=== PATIENT | female | born 1945 | race Hispanic/Latino ===

== ENCOUNTER 2016-06-30 12:15 | Emergency (ER) | payer MEDICARE, BC ==
[2016-06-30 12:26] VITALS: RESP 18; TEMP 98.3; BMI 40.3
[2016-06-30] MEDS ORDERED: Albuterol-Ipratrop 3 mg / 0.5 (3 ml) UD IH STA (12:57)
--- NOTE | 2016-06-30 13:02 | ED PDOC ---
Arrival/HPI - General Chief Complaint: Shortness Of Breath Time Seen by Provider: 06/30/16 12:42 Historian: Patient - History of Present Illness Narrative History of Present Illness (Text): 06/30/16 12:55 A 70 year old female presents to the emergency department complaining of a cough , congestion, shortness of breath and wheezing for the past 9 weeks. Patient states she has been in and out of her PMD office for the same complaints and has taken maniple antibiotics. She says yesterday she went to her PMD office and was told to come to the emergency department for admission. Patient denies any abdominal pain, fever, nausea, vomiting or other complaints. Patient quit smoking 6 years ago and occasional drinks. PMD: Dr. Turner Time/Duration: Other (9 weeks) Symptom Onset: Other Symptom Course: Unchanged Quality: Other Activities at Onset: Rest Context: Home Associated Symptoms (Text): 06/30/16 15:05 Several month history of cough congestion and URI shortness of breath and wheezing. patient has been on several courses of antibiotics. She's been on multiple courses of by mouth steroids. She was seen by her PMD in the office yesterday and given a shot of steroids and directed to the emergency department for admission. Past Medical History - Provider Review Nursing Documentation Reviewed: Yes - Cardiac Hx Hypertension: Yes - Pulmonary Hx Asthma: Yes Hx Chronic Obstructive Pulmonary Disease (COPD): Yes - Endocrine/Metabolic Hx Diabetes Mellitus Type 2: Yes - Genitourinary/Gynecological Hx Cervical Cancer: Yes (cervical conization) - Psychiatric Hx Substance Use: No - Anesthesia Hx Anesthesia: Yes Hx Anesthesia Reactions: No Hx Malignant Hyperthermia: No Family/Social History - Physician Review Nursing Documentation Reviewed: Yes Family/Social History: Unknown Family HX Smoking Status: Former Smoker (quit smoking 6 years ago) Hx Alcohol Use: Yes Frequency of alcohol use: Socially Hx Substance Use: No Allergies/Home Meds Allergies/Adverse Reactions: Allergies No Known Allergies Allergy (Unverified 06/30/16 12:56) Review of Systems - Physician Review All systems were reviewed & negative as marked: Yes - Review of Systems Constitutional: absent: Fatigue, Fevers ENT: Sinus Congestion Respiratory: SOB, Cough, Wheezing. absent: Sputum Cardiovascular: absent: Chest Pain, Palpitations, Syncope Gastrointestinal: absent: Abdominal Pain, Nausea, Vomiting Neurological: absent: Headache, Dizziness Physical Exam Vital Signs Reviewed: Yes Vital Signs Temp Pulse Resp BP Pulse Ox 06/30/16 13:34 78 18 122/59 L 96 06/30/16 12:26 98.3 F 83 18 124/58 L 95 Temperature: Afebrile Blood Pressure: Normal Pulse: Regular Respiratory Rate: Normal Appearance: Positive for: Well-Appearing, Non-Toxic, Comfortable Pain Distress: None Mental Status: Positive for: Alert and Oriented X 3 - Systems Exam Head: Present: Atraumatic, Normocephalic Pupils: Present: PERRL Extroacular Muscles: Present: EOMI Conjunctiva: Present: Normal Mouth: Present: Moist Mucous Membranes Pharnyx: No: ERYTHEMA, EXUDATE, TONSILS ENLARGED Neck: Present: Normal Range of Motion Respiratory/Chest: Present: Good Air Exchange, Wheezes (moderate wheezing bilaterally), Decreased Breath Sounds, Rhonchi (moderate rhonchi bilaterally). No: Respiratory Distress, Accessory Muscle Use, Rales, Retracting, Tachypneic, Tender to Palpation Cardiovascular: Present: Regular Rate and Rhythm, Normal S1, S2. No: Murmurs Abdomen: Present: Normal Bowel Sounds, Other (obese). No: Tenderness, Distention, Peritoneal Signs Back: Present: Normal Inspection Upper Extremity: Present: Normal Inspection. No: Cyanosis, Edema Lower Extremity: Present: Normal Inspection. No: Edema Neurological: Present: GCS=15, CN II-XII Intact, Speech Normal, Motor Func Grossly Intact Skin: Present: Warm, Dry, Normal Color. No: Rashes Psychiatric: Present: Alert, Oriented x 3, Normal Insight, Normal Concentration Medical Decision Making ED Course and Treatment: 06/30/16 12:55 Impression: A 70 year old female with cough, congestion, shortness of breath and wheezing. Differential Diagnosis include but are not limited to: ACS vs. bronchitis vs. pneumonia vs. CHF vs. COPD Plan: -- EKG -- Chest X-ray -- Labs -- Duoneb and Solu-Medrol -- Reassess and disposition Progress Notes: 06/30/16 15:07 Patient apparently eloped from the emergency department - Lab Interpretations Lab Results: 06/30/16 14:00 Lab Results 06/30/16 14:00: WBC 13.1 H, RBC 4.34, Hgb 13.5, Hct 39.2, MCV 90.3, MCH 31.1, MCHC 34.4, RDW 13.2, Plt Count 337, MPV 10.2, Gran % 70.8 H, Lymph % (Auto) 18.7 L, [place] % (Auto) 8.2 H, Eos % (Auto) 2.1, Baso % (Auto) 0.2, Gran # 9.27 H , Lymph # 2.5, [place] # 1.1 H, Eos # 0.3, Baso # 0.03 I have reviewed the lab results: Yes - RAD Interpretation Radiology Orders: 06/30/16 12:56 CHEST PORTABLE [RAD] Stat Chest 1 view shows no infiltrate effusion or cardiomegaly Psychiatric Rn: ED Physician - Medication Orders Current Medication Orders: Discontinued Medications Albuterol/Ipratropium (Duoneb 3 Mg/0.5 Mg (3 Ml) Ud) 3 ml IH ONCE STA Stop: 06/30/16 12:58 Last Admin: 06/30/16 13:47 Dose: 3 ml Methylprednisolone (Solu-Medrol) 125 mg IVP ONCE ONE Stop: 06/30/16 12:58 Last Admin: 06/30/16 13:47 Dose: 125 mg - Scribe Statement The provider has reviewed the documentation as recorded by the Kane Rojas Provider Kane Attestation: All medical record entries made by the Kane were at my direction and personally dictated by me. I have reviewed the chart and agree that the record accurately reflects my personal performance of the history, physical exam, medical decision making, and the department course for this patient. I have also personally directed, reviewed, and agree with the discharge instructions and disposition. Disposition/Present on Arrival - Present on Arrival Any Indicators Present on Arrival: No History of DVT/PE: No History of Uncontrolled Diabetes: No Urinary Catheter: No History of Decub. Ulcer: No History Surgical Site Infection Following: None - Disposition Have Diagnosis and Disposition been Completed?: Yes Diagnosis: Asthmatic bronchitis Disposition: ELOPEMENT - ER ONLY Disposition Time: 15:08 Patient Plan: Other Condition: GOOD Referrals: Sumit Butcher MD [Primary Care Provider] - Follow up with primary
--- NOTE | 2016-06-30 13:18 | RAD ---
HISTORY: sob COMPARISON: No prior. FINDINGS: LUNGS: No active pulmonary disease. PLEURA: No significant pleural effusion identified, no pneumothorax apparent. CARDIOVASCULAR: Normal. OSSEOUS STRUCTURES: No significant abnormalities. VISUALIZED UPPER ABDOMEN: Normal. OTHER FINDINGS: None. IMPRESSION: No active disease.
[2016-06-30 13:34] VITALS: BP 122/59; PULSE 78; O2SAT 96
[2016-06-30 14:05] LABS: ADD MANUAL DIFF? NO
[2016-06-30 14:09] LABS: BASO # 0.03 K/mm3 (0.0-2.0); BASO % 0.2 % (0.0-3.0); EOS # 0.3 (0.0-0.7); EOS % 2.1 % (1.5-5.0); GRAN # 9.27 (1.4-6.5); GRAN % 70.8 % (50.0-68.0); HEMATOCRIT 39.2 % (36.0-48.0); LYMPH # 2.5 (1.2-3.4); LYMPH % 18.7 % (22.0-35.0); MEAN CELL VOLUME 90.3 fL (80.0-105.0); MEAN CORPUSCULAR HEMOGLOBIN 31.1 pg (25.0-35.0); MEAN CORPUSCULAR HGB CONC 34.4 g/dl (31.0-37.0); MEAN PLATELET VOLUME 10.2 fl (7.0-11.0); MONO # 1.1 (0.1-0.6); MONO % 8.2 % (1.0-6.0); PLATELET COUNT 337 10^3/uL (120.0-450.0); RED CELL DISTRIBUTION WIDTH 13.2 % (11.5-14.5); WHITE BLOOD COUNT 13.1 10^3/ul (4.5-11.0)
--- NOTE | 2016-06-30 22:30 | CARD ---
APPROVED REPORT EKG Measurement Heart [id number] <Conclusion> Normal sinus rhythm Normal ECG
== END 2016-06-30 15:00 | disposition left against medical advice (07) ==
LOC: ED 12:15
DX: J45.909 Unspecified asthma, uncomplicated (principal)
CPT/HCPCS: 71010; 85025; 93005; 96374; 99284; J2930

== ENCOUNTER 2017-01-01 13:42 | Inpatient (IN) | payer MEDICARE, BC ==
--- NOTE | 2017-01-01 14:19 | ED PDOC ---
Arrival/HPI - General Chief Complaint: Altered Mental Status Time Seen by Provider: 01/01/17 13:46 Historian: Patient - History of Present Illness Narrative History of Present Illness (Text): 01/01/17 14:18 A 71 year old female, whose past medical history includes questionable uterine cancer (being treated at [facility]), last chemotherapy treatment was approximately last week, was brought in by EMS to the emergency department complaining of one episode of vomiting today and chills. Patient lives with son , was unattended last night and remembers falling to the ground, all night and was too weak to get up. Patient is a poor historian, no further history was elicited. Patient denies any fever, dysuria, cough, shortness of breath, knee pain or any other complaints at this time. PMD: Dr. Butcher Symptom Onset: Sudden Symptom Course: Unchanged Activities at Onset: Rest Context: Home Past Medical History - Provider Review Nursing Documentation Reviewed: Yes - Infectious Disease Hx of Infectious Diseases: None - Cardiac Hx Cardiac Disorders: Yes Hx Hypertension: Yes - Pulmonary Hx Asthma: Yes Hx Chronic Obstructive Pulmonary Disease (COPD): Yes - Renal Hx Renal Disorder: No - Endocrine/Metabolic Hx Diabetes Mellitus Type 2: Yes - Hematological/Oncological Hx Cancer: Yes (lymph node, ovarian, lung) - Musculoskeletal/Rheumatological Hx Falls: Yes - Genitourinary/Gynecological Hx Cervical Cancer: Yes (cervical conization) - Psychiatric Hx Substance Use: No - Anesthesia Hx Anesthesia: Yes Hx Anesthesia Reactions: No Hx Malignant Hyperthermia: No Family/Social History - Physician Review Nursing Documentation Reviewed: Yes Family/Social History: No Known Family HX Smoking Status: Former Smoker Hx Alcohol Use: Yes Hx Substance Use: No Allergies/Home Meds Allergies/Adverse Reactions: Allergies No Known Allergies Allergy (Verified 01/01/17 14:05) Home Medications: Home Meds Medication Instructions Recorded Confirmed Unobtainable 01/01/17 01/01/17 Review of Systems - Patients Enrolled in [employer] [X]: A conversation was conducted with the primary medical doctor. - Physician Review All systems were reviewed & negative as marked: Yes - Review of Systems Constitutional: absent: Fevers Respiratory: absent: SOB, Cough Genitourinary Female: absent: Dysuria Musculoskeletal: absent: Other (knee pain) Physical Exam Vital Signs Reviewed: Yes Vital Signs Temp Pulse Resp BP Pulse Ox 01/01/17 17:33 99.9 F H 84 18 137/61 95 01/01/17 16:00 99.0 F 89 18 138/71 95 01/01/17 14:00 97.6 F 100 H 16 153/69 H 100 Temperature: Afebrile Blood Pressure: Hypertensive Pulse: Regular Respiratory Rate: Normal Appearance: Positive for: Comfortable Pain Distress: None Mental Status: Positive for: other (alert) Finger Stick Blood Glucose: 114 - Systems Exam Head: Present: Atraumatic, Normocephalic Pupils: Present: PERRL Extroacular Muscles: Present: EOMI Conjunctiva: Present: Normal Mouth: Present: Moist Mucous Membranes Neck: Present: Normal Range of Motion Respiratory/Chest: Present: Clear to Auscultation, Good Air Exchange, Other ( erythema around port on R chest, tender to palpation, reports this has been like that ever since had port put in). No: Respiratory Distress, Accessory Muscle Use Cardiovascular: Present: Regular Rate and Rhythm, Normal S1, S2. No: Murmurs Abdomen: Present: Normal Bowel Sounds. No: Tenderness, Distention, Peritoneal Signs Back: Present: Normal Inspection Upper Extremity: Present: Normal Inspection. No: Cyanosis, Edema Lower Extremity: Present: Other (left knee contusion). No: Edema Skin: Present: Warm, Dry, Normal Color. No: Rashes Psychiatric: Present: Alert. No: Normal Insight, Normal Concentration Medical Decision Making ED Course and Treatment: 01/01/17 14:16 Impression: A 71 year old female with chills and vomiting. Plan: -- EKG -- chest xray -- CT head -- labs -- Urinalysis -- Vancomycin -- Reassess and disposition Prior Visits: Notes and results from previous visits were reviewed. Patient was last seen in the emergency department on 12/18/16 for evalaution of RLQ abdominal pain. Patient had a CT abd/pelvis, but while waiting for results, she eloped. Patient also had a pelvic US done two months ago, which showed diffuse endometrial thickening. CT abd/pelvis with contrast from 12/18/16 Creator : Eve Barone MD IMPRESSION: Indeterminate 12 mm splenic dome hypodensity. Splenomegaly. Too small to characterize hepatic hypodensity. Too small to characterize right renal hypodensities. 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 Heterogeneous appearance of the uterus including punctate calcifications likely related to fibroids. Fluid and heterogeneous appearance of the endometrium; correlate clinically ; in this postmenopausal patient, malignant neoplasm must be excluded. Progress Notes: Patient was prescribed 90 oxycodone on 12/12/16. EKG: Ordered, reviewed, and independently interpreted the EKG. Rate : 104 BPM Rhythm : sinus tachycardic Interpretation : no ectopy, no ischemic changes, qs in 3 and avf suggestive of old inferior wall HI 01/01/17 15:33 White count is 12.8 with a left shift. Will start her on antibiotics. Spoke with Dr. Butcher, who agrees to admit patient. 01/01/17 16:23 Chest xray: Portacath in place to R chest wall, lungs no acute pulmonary disease, cardiac silhouette within normal limits, as read by me. 01/01/17 18:20 CT HEAD WITHOUT CONTRAST Creator : Ross Mcelroy FINDINGS: HEMORRHAGE: No intracranial hemorrhage. BRAIN: No mass effect or edema. No atrophy or chronic microvascular ischemic changes. VENTRICLES: Unremarkable. No hydrocephalus. CALVARIUM: Unremarkable. PARANASAL SINUSES: Unremarkable as visualized. No significant inflammatory changes. MASTOID AIR CELLS: Unremarkable as visualized. No inflammatory changes. IMPRESSION: No evidence of acute intracranial hemorrhage territorial infarct mass effect or midline shift. - Lab Interpretations Lab Results: 01/01/17 14:30 01/01/17 14:30 Lab Results 01/01/17 15:27: pO2 27 L, VBG pH 7.35, VBG pCO2 53.0, VBG HCO3 29.3 H, VBG Total CO2 30.9 H, VBG O2 Sat (Calc) 56.7, VBG Base Excess 2.5 H, VBG Potassium 4.4, Glucose 158 H, Lactate 3.0 H, FiO2 21.0, Sodium 135.0, Chloride 101.0, Venous Blood Potassium 4.4 01/01/17 14:30: Sodium 136, Potassium 4.9, Chloride 98, Carbon Dioxide 29, Anion Gap 14, BUN 26 H, Creatinine 0.9, Est GFR ( Amer) > 60, Est GFR ( Non-Af Amer) > 60, Random Glucose 156 H, Calcium 9.7, Total Bilirubin 0.8, AST 64 H D, ALT 41, Alkaline Phosphatase 71, Troponin I 0.35 H*, Total Protein 7.5, Albumin 3.9, Globulin 3.7, Albumin/Globulin Ratio 1.1, Lipase 57 01/01/17 14:30: PT 12.8 H, INR 1.17 H, APTT 34.7 01/01/17 14:30: WBC 12.9 H D, RBC 4.37, Hgb 12.8, Hct 37.2, MCV 85.1, MCH 29.3, MCHC 34.4, RDW 13.6, Plt Count 161, MPV 10.0, Gran % 91.6 H, Lymph % (Auto) 4.8 L, [place] % (Auto) 3.4, Eos % (Auto) 0.0 L, Baso % (Auto) 0.2, Gran # 11.81 H, Lymph # 0.6 L, Branch # 0.4, Eos # 0.0, Baso # 0.03, Neutrophils % (Manual) 86 H, Band Neutrophils % 4 H, Lymphocytes % (Manual) 6 L, Monocytes % (Manual) 4, Platelet Evaluation Normal 01/01/17 14:11: POC Glucose (mg/dL) 114 H I have reviewed the lab results: Yes - RAD Interpretation Radiology Orders: 01/01/17 14:05 HEAD W/O CONTRAST [CT] Stat 01/01/17 14:06 CHEST PORTABLE [RAD] Stat - EKG Interpretation Interpreted by ED Physician: Yes Type: 12 lead EKG - Medication Orders Current Medication Orders: Acetaminophen (Tylenol 325mg Tab) 650 mg PO Q4H PRN PRN Reason: Temperature Last Admin: 01/01/17 20:55 Dose: 650 mg MAR Pain/Vitals Document 01/01/17 20:55 CD (Rec: 01/01/17 20:56 CD [facility] [id number][place] Vitals Temperature (97.6 F-99.6 F) 101.9 F Temperature Source Rectal Ceftriaxone Sodium (Rocephin 1 Gram Ivpb) 1 gm in 100 mls @ 100 mls/hr IVPB DAILY LULU PRN Reason: Protocol Vancomycin HCl (Vancomycin 1gm) 1 gm in 250 mls @ 167 mls/hr IVPB Q12H [facility] PRN Reason: Protocol Last Admin: 01/01/17 19:01 Dose: Sodium Chloride (Sodium Chloride 0.45%) 1,000 mls @ 75 mls/hr IV .[id number] LULU Last Admin: 01/01/17 20:40 Dose: 75 mls/hr eMAR Start Stop Document 01/01/17 20:40 CD (Rec: 01/01/17 20:40 CD [id number]) Intravenous Solution Start Date 01/01/17 Start Time 20:40 Insulin Human Lispro (Humalog Med) 0 units SC ACHS LULU PRN Reason: Protocol Discontinued Medications Vancomycin HCl 1.5 gm/ Sodium (Chloride) 250 mls @ 167 mls/hr IVPB ONCE ONE PRN Reason: Protocol Stop: 01/01/17 17:02 Last Admin: 01/01/17 17:10 Dose: 167 mls/hr eMAR Start Stop Document 01/01/17 17:10 KKL (Rec: 01/01/17 17:10 [id number] Intravenous Solution Start Date 01/01/17 Start Time 17:10 Ceftriaxone Sodium (Rocephin 1 Gram Ivpb) 1 gm in 100 mls @ 200 mls/hr IVPB STAT STA PRN Reason: Protocol Stop: 01/01/17 16:04 Last Admin: 01/01/17 16:40 Dose: 200 mls/hr eMAR Start Stop Document 01/01/17 16:40 KKL (Rec: 01/01/17 16:41 KKL [id number]) Intravenous Solution Start Date 01/01/17 Start Time 16:41 Sodium Chloride 3,000 ml/ IV (SUPPLIES) 3,000 mls @ 6,803.88 mls/hr IV ONCE ONE PRN Reason: 60 ML/KG/HR Stop: 01/01/17 15:46 Last Admin: 01/01/17 16:41 Dose: 6,803.88 mls/hr eMAR Start Stop Document 01/01/17 16:41 KKL (Rec: 01/01/17 16:41 KKL [id number]) Intravenous Solution Start Date 01/01/17 Start Time 15:45 - Scribe Statement The provider has reviewed the documentation as recorded by the Kane Vogt Provider Scribe Attestation: All medical record entries made by the Scribe were at my direction and personally dictated by me. I have reviewed the chart and agree that the record accurately reflects my personal performance of the history, physical exam, medical decision making, and the department course for this patient. I have also personally directed, reviewed, and agree with the discharge instructions and disposition. Disposition/Present on Arrival - Present on Arrival Any Indicators Present on Arrival: No History of DVT/PE: No History of Uncontrolled Diabetes: No Urinary Catheter: No History of Decub. Ulcer: No History Surgical Site Infection Following: None - Disposition Have Diagnosis and Disposition been Completed?: Yes Diagnosis: Sepsis associated with vascular access catheter Disposition: HOSPITALIZED Disposition Time: 22:35 Patient Plan: Admission Condition: FAIR
[2017-01-01 15:28] LABS: BASO # 0.03 K/mm3 (0.0-2.0); BASO % 0.2 % (0.0-3.0); GRAN # 11.81 (1.4-6.5); GRAN % 91.6 % (50.0-68.0); HEMATOCRIT 37.2 % (36.0-48.0); LYMPH # 0.6 (1.2-3.4); LYMPH % 4.8 % (22.0-35.0); MEAN CELL VOLUME 85.1 fl (80.0-105.0); MEAN CORPUSCULAR HEMOGLOBIN 29.3 pg (25.0-35.0); MEAN CORPUSCULAR HGB CONC 34.4 g/dl (31.0-37.0); MONO # 0.4 (0.1-0.6); MONO % 3.4 % (1.0-6.0); PLATELET COUNT 161 10^3/uL (120.0-450.0); RED CELL DISTRIBUTION WIDTH 13.6 % (11.5-14.5); WHITE BLOOD COUNT 12.9 10^3/ul (4.5-11.0)
[2017-01-01 15:30] LABS: VENOUS BLOOD GAS BASE EXCESS 2.5 mmol/L (0.0-2.0); VENOUS BLOOD PH 7.35 (7.32-7.43)
[2017-01-01 15:34] LABS: ALB/GLOB RATIO 1.1 (1.1-1.8); ALKALINE PHOSPHATASE 71 U/L (38-126); ALT/SGPT 41 U/L (7-56); AST/SGOT 64 U/L (14-36); BILIRUBIN,TOTAL 0.8 mg/dL (0.2-1.3); BLOOD UREA NITROGEN 26 mg/dL (7-21); CALCIUM 9.7 mg/dL (8.4-10.5); CARBON DIOXIDE 29 mmol/L (21-33); CHLORIDE 98 mmol/L (98-107); GFR AFRICAN-AMERICAN > 60; GLUCOSE,RANDOM 156 mg/dL (70-110); LIPASE 57 U/L (23-300); POTASSIUM 4.9 mmol/L (3.6-5.0); SODIUM 136 mmol/L (132-148); TOTAL PROTEIN 7.5 g/dL (5.8-8.3)
[2017-01-01] MEDS ORDERED: cefTRIAXone 1 gm 1 GM/100 ML BAG IVPB STA (15:35)
[2017-01-01 15:44] LABS: INR 1.17 (0.93-1.08); PARTIAL THROMBOPLASTIN TIME 34.7 Seconds (25.1-36.5)
[2017-01-01 15:56] LABS: PH,URINE 5.5 (4.7-8.0); URINE APPEARANCE CLEAR (CLEAR); URINE BILIRUBIN NEGATIVE (NEGATIVE); URINE BLOOD MODERATE (NEGATIVE); URINE COLOR YELLOW (YELLOW); URINE GLUCOSE (UA) NEGATIVE (NEGATIVE); URINE KETONE NEGATIVE (NEGATIVE); URINE LEUKOCYTE ESTERASE NEGATIVE Leu/uL (NEGATIVE); URINE PROTEIN 30 mg/dL (<30 mg/dL); URINE UROBILINOGEN 0.2 E.U./dL (<1 E.U./dL)
[2017-01-01 15:56] LABS: TROPONIN I 0.35 ng/mL
[2017-01-01 16:43] LABS: URINE AMORPHOUS SEDIMENT MODERATE; URINE BACTERIA MOD (NEG); URINE EPITHELIAL CELLS 0 - 2 /hpf (0-5); URINE WBC 0 - 2 /hpf (0-6)
--- NOTE | 2017-01-01 16:57 | RAD ---
HISTORY: Shortness of breath. Technique: Single view portable semi erect @ 16:05. COMPARISON: 06/30/2016 FINDINGS: LUNGS: No active pulmonary disease. PLEURA: No significant pleural effusion identified, no pneumothorax apparent. CARDIOVASCULAR: No radiographic findings to suggest acute or significant cardiovascular disease. Venous access catheter in satisfactory position. OSSEOUS STRUCTURES: No significant abnormalities. VISUALIZED UPPER ABDOMEN: Normal. OTHER FINDINGS: None. IMPRESSION: No active disease. No significant interval change compared to the prior examination(s).
[2017-01-01 18:22] LABS: BAND 4 % (0-2); NEUTROPHIL 86 % (50.0-70.0)
--- NOTE | 2017-01-01 18:22 | CT ---
PROCEDURE: CT HEAD WITHOUT CONTRAST. HISTORY: altered mental status COMPARISON: None available. TECHNIQUE: Axial computed tomography images were obtained through the head/brain without intravenous contrast. Radiation dose: Total exam DLP = 930.49 mGy-cm. This CT exam was performed using one or more of the following dose reduction techniques: Automated exposure control, adjustment of the mA and/or kV according to patient size, and/or use of iterative reconstruction technique. FINDINGS: HEMORRHAGE: No intracranial hemorrhage. BRAIN: No mass effect or edema. No atrophy or chronic microvascular ischemic changes. VENTRICLES: Unremarkable. No hydrocephalus. CALVARIUM: Unremarkable. PARANASAL SINUSES: Unremarkable as visualized. No significant inflammatory changes. MASTOID AIR CELLS: Unremarkable as visualized. No inflammatory changes. OTHER FINDINGS: None. IMPRESSION: No evidence of acute intracranial hemorrhage territorial infarct mass effect or midline shift.
[2017-01-01 18:23] LABS: PLATELET ESTIMATE NORMAL (NORMAL)
[2017-01-01] MEDS: Vancomycin 1gm in NS 250ml 1 GM/250 ML BAG IVPB SCH (19:01)
[2017-01-01 19:48] LABS: VENOUS BLOOD PH 7.46 (7.32-7.43)
[2017-01-01 19:53] VITALS: BMI 40.3
[2017-01-01] MEDS ORDERED: Influenza Vaccine 60 mcg/0.5 mL SYR (4YR UP) IM ONE (19:53)
[2017-01-01] MEDS: Sodium Chloride 0.45% 1,000 ML IV SCH ×2 (20:40→23:19)
--- NOTE | 2017-01-01 22:57 | CARD ---
APPROVED REPORT EKG Measurement Heart [id number] MO 144P0 [id number] <Conclusion> Sinus tachycardia Inferior infarct, age undetermined Abnormal ECG
[2017-01-01] MEDS: Insulin Lispro (humaLOG) MEDIUM Coverage SC SCH (23:16)
--- NOTE | 2017-01-01 23:36 | HP ---
HISTORY OF PRESENT ILLNESS: The patient is a 71-year-old known to me from office practice, recently diagnosed with uterine cancer and getting chemotherapy and her last chemotherapy was a week ago. She complained of feeling very lethargic and vomited earlier this morning. The patient states that she felt very weak last night and fell and after that she does not know what happened. She was too weak to get up and call 911. So, this morning when she woke up, she managed to call ambulance and was brought to emergency room. Complained of generalized weakness and seems to be somewhat confused. No cough or congestion. Complained of feeling nauseous. PAST MEDICAL HISTORY: Significant for: 1. Degenerative disk disease. 2. COPD. 3. Borderline hypertension. 4. Recently diagnosed uterine cancer and got Port-A-Cath. ALLERGIES: SHE IS NOT ALLERGIC TO ANY MEDICATION. SOCIAL HISTORY: She used to be heavy smoker, socially drinks, and she used to live with her daughter who moved out. MEDICATIONS AT HOME: She is on MS Contin 30 mg twice a day. She is on amitriptyline 25 mg at bedtime. She is on Advair and also uses metformin 500 twice a day, Protonix 40 daily, and valsartan 160/12.5. REVIEW OF SYSTEMS: Generalized weakness and poor appetite. PHYSICAL EXAMINATION: GENERAL: She is awake and alert, but confused and lethargic. VITAL SIGNS: Temperature of 99.9, pulse 84, respirations 18, and blood pressure 137/61. LUNGS: Bilateral good airflow. No rhonchi or crackles. HEART: S1 and S2 audible. ABDOMEN: Soft, obese, and nontender. No rebound. No guarding. NEUROLOGIC: She is sleepy, but arousable. LABORATORY DATA: WBC is 12.9, hemoglobin is 12.8, hematocrit is 37.2, and platelets are 161. PT is 12.8 and INR is 1.17. Chemistry; sodium is 136, potassium is 4.9, chloride is 98, CO2 of 29, BUN is 26, creatinine is 0.9, and blood sugar of 156. Troponin 0.35. AST 64. Urinalysis shows moderate blood and RBC is 2.5 only. ASSESSMENT: 1. Sepsis probably related to catheter since she has erythema in the right Port-A-Cath area. 2. Uterine cancer. 3. Mild rhabdomyolysis. 4. History of hypertension. 5. Zob-ilqlyza-brnxxhkxe diabetes. PLAN: We will start the patient on IV fluids. We will follow up troponin. Cardiology consult, Neurology consult, and ID consult has been requested to monitor her blood sugar. We will start her on IV vancomycin and Rocephin. I will order for echocardiogram. We will monitor intake and output. We will reevaluate the patient in a.m. Sumit Butcher MD
--- NOTE | 2017-01-02 00:43 | CP.PCM.PN ---
Subjective - Date & Time of Evaluation Date of Evaluation: 01/02/17 Time of Evaluation: 00:42 - Subjective Subjective: Patient was seen at bedside. Complains of severe headache. Left arm pain. Has no other complaints. Denies nausea, vomiting, paraesthesia, weakness. Medical record was reviewed. This 71 year old woman was admitted for weakness and lethargy. Has PMH of uterine cancer, S/P chemotherapy, obesity, borderline HTN, DJD, COPD , s/P port-a-cath insertion. l Objective - Vital Signs/Intake and Output Vital Signs (last 24 hours): Temp Pulse Resp BP Pulse Ox 1003 F H 104 H 20 167/76 H 98 01/02/17 00:01 01/02/17 00:01 01/02/17 00:01 01/02/17 00:01 01/02/17 00:01 - Medications Medications: Current Medications Acetaminophen (Tylenol 325mg Tab) 650 mg PO Q4H PRN PRN Reason: Temperature Last Admin: 01/01/17 20:55 Dose: 650 mg Ceftriaxone Sodium (Rocephin 1 Gram Ivpb) 1 gm in 100 mls @ 100 mls/hr IVPB DAILY [facility] PRN Reason: Protocol Vancomycin HCl (Vancomycin 1gm) 1 gm in 250 mls @ 167 mls/hr IVPB Q12H [facility] PRN Reason: Protocol Last Admin: 01/01/17 19:01 Dose: Not Given Sodium Chloride (Sodium Chloride 0.45%) 1,000 mls @ 75 mls/hr IV .[id number] [facility] Last Admin: 01/01/17 23:19 Dose: Not Given Insulin Human Lispro (Humalog Med) 0 units SC ACHS [facility] PRN Reason: Protocol Last Admin: 01/01/17 23:16 Dose: Not Given - Labs Labs: PT 12.8 SECONDS (9.4-12.5) H 01/01/17 14:30 INR 1.17 (0.93-1.08) H 01/01/17 14:30 APTT 34.7 Seconds (25.1-36.5) 01/01/17 14:30 Micro Results 01/01/17 15:00 Blood Blood Culture - Preliminary Gram Positive Cocci 01/01/17 15:00 Blood Gram Stain - Final 01/01/17 14:30 Blood S.aureus & Coag-Neg Staph PNA FISH - Final 01/01/17 14:30 Blood Blood Culture - Preliminary Gram Positive Cocci 01/01/17 14:30 Blood Gram Stain - Final Most Recent Lab Values WBC 5.8 10^3/ul (4.5-11.0) D 01/02/17 06:20 RBC 3.81 10^6/uL (3.5-6.1) 01/02/17 06:20 Hgb 10.9 g/dL (12.0-16.0) L 01/02/17 06:20 Hct 32.7 % (36.0-48.0) L 01/02/17 06:20 MCV 85.8 fl (80.0-105.0) 01/02/17 06:20 MCH 28.6 pg (25.0-35.0) 01/02/17 06:20 MCHC 33.3 g/dl (31.0-37.0) 01/02/17 06:20 RDW 13.7 % (11.5-14.5) 01/02/17 06:20 Plt Count 110 10^3/uL (120.0-450.0) L 01/02/17 06:20 MPV 10.2 fl (7.0-11.0) 01/02/17 06:20 Gran % 78.3 % (50.0-68.0) H 01/02/17 06:20 Lymph % (Auto) 14.4 % (22.0-35.0) L 01/02/17 06:20 [place] % (Auto) 6.7 % (1.0-6.0) H 01/02/17 06:20 Eos % (Auto) 0.3 % (1.5-5.0) L 01/02/17 06:20 Baso % (Auto) 0.3 % (0.0-3.0) 01/02/17 06:20 Gran # 4.55 (1.4-6.5) 01/02/17 06:20 Lymph # 0.8 (1.2-3.4) L 01/02/17 06:20 [place] # 0.4 (0.1-0.6) 01/02/17 06:20 Eos # 0.0 (0.0-0.7) 01/02/17 06:20 Baso # 0.02 K/mm3 (0.0-2.0) 01/02/17 06:20 Neutrophils % (Manual) 86 % (50.0-70.0) H 01/01/17 14:30 Band Neutrophils % 4 % (0-2) H 01/01/17 14:30 Lymphocytes % (Manual) 6 % (22.0-35.0) L 01/01/17 14:30 Monocytes % (Manual) 4 % (1.0-6.0) 01/01/17 14:30 Platelet Evaluation Normal (NORMAL) 01/01/17 14:30 PT 12.8 SECONDS (9.4-12.5) H 01/01/17 14:30 INR 1.17 (0.93-1.08) H 01/01/17 14:30 APTT 34.7 Seconds (25.1-36.5) 01/01/17 14:30 pO2 82 mm/Hg (30-55) H 01/01/17 19:30 VBG pH 7.46 (7.32-7.43) H 01/01/17 19:30 VBG pCO2 36.0 (40-60) L 01/01/17 19:30 VBG HCO3 25.6 mmol/l (21-28) 01/01/17 19:30 VBG Total CO2 26.7 mmol.L (22-28) 01/01/17 19:30 VBG O2 Sat (Calc) 97.5 % (40-65) H 01/01/17 19:30 VBG Base Excess 2.0 mmol/L (0.0-2.0) 01/01/17 19:30 VBG Potassium 3.7 mmol/L (3.6-5.2) 01/01/17 19:30 Sodium 136.0 mmol/L (132-148) 01/01/17 19:30 Chloride 106.0 mmol/L (98-107) 01/01/17 19:30 Glucose 135 mg/dl (65-105) H 01/01/17 19:30 Lactate 1.5 mmol/L (0.7-2.1) 01/01/17 19:30 FiO2 21.0 % 01/01/17 19:30 Sodium 136 mmol/L (132-148) 01/02/17 06:20 Potassium 4.4 mmol/L (3.6-5.0) 01/02/17 06:20 Chloride 103 mmol/L (98-107) 01/02/17 06:20 Carbon Dioxide 29 mmol/L (21-33) 01/02/17 06:20 Anion Gap 8 (10-20) L 01/02/17 06:20 BUN 25 mg/dL (7-21) H 01/02/17 06:20 Creatinine 1.0 mg/dl (0.7-1.2) 01/02/17 06:20 Est GFR ( Amer) > 60 01/02/17 06:20 Est GFR (Non-Af Amer) 55 01/02/17 06:20 POC Glucose (mg/dL) 134 mg/dL (65-110) H 01/02/17 11:31 Random Glucose 117 mg/dL (70-110) H 01/02/17 06:20 Lactic Acid 2.8 mmol/L (0.7-2.1) H 01/01/17 15:55 Calcium 8.9 mg/dL (8.4-10.5) 01/02/17 06:20 Phosphorus 5.9 mg/dL (2.5-4.5) H 01/02/17 06:20 Magnesium 1.4 mg/dL (1.7-2.2) L 01/02/17 06:20 Total Bilirubin 0.6 mg/dL (0.2-1.3) 01/02/17 06:20 AST 78 U/L (14-36) H D 01/02/17 06:20 ALT 61 U/L (7-56) H 01/02/17 06:20 Alkaline Phosphatase 59 U/L (38-126) 01/02/17 06:20 Total Creatine Kinase 1324 U/L (35-230) H 01/02/17 06:20 CK-MB (CK-2) 3.2 ng/mL (0.0-3.6) 01/02/17 06:20 CK-MB (CK-2) % Cancelled 01/02/17 06:20 Troponin I 0.41 ng/mL H* 01/01/17 19:30 Total Protein 6.3 g/dL (5.8-8.3) 01/02/17 06:20 Albumin 3.0 g/dL (3.0-4.8) 01/02/17 06:20 Globulin 3.2 gm/dL 01/02/17 06:20 Albumin/Globulin Ratio 0.9 (1.1-1.8) L 01/02/17 06:20 Lipase 57 U/L (23-300) 01/01/17 14:30 Procalcitonin 24.76 NG/ML (0.19-0.49) H 01/02/17 08:00 Free T4 1.02 ng/dL (0.78-2.19) 01/02/17 06:20 TSH 3rd Generation 1.66 mIU/mL (0.46-4.68) 01/02/17 06:20 Venous Blood Potassium 3.7 mmol/L (3.6-5.2) 01/01/17 19:30 Urine Color Yellow (YELLOW) 01/01/17 15:45 Urine Appearance Clear (CLEAR) 01/01/17 15:45 Urine pH 5.5 (4.7-8.0) 01/01/17 15:45 Ur Specific [place] >= 1.030 (1.005-1.035) 01/01/17 15:45 Urine Protein 30 mg/dL (<30 mg/dL) H 01/01/17 15:45 Urine Glucose (UA) Negative mg/dL (NEGATIVE) 01/01/17 15:45 Urine Ketones Negative mg/dL (NEGATIVE) 01/01/17 15:45 Urine Blood Moderate (NEGATIVE) H 01/01/17 15:45 Urine Nitrate Negative (NEGATIVE) 01/01/17 15:45 Urine Bilirubin Negative (NEGATIVE) 01/01/17 15:45 Urine Urobilinogen 0.2 E.U./dL (<1 E.U./dL) 01/01/17 15:45 Ur Leukocyte Esterase Negative Elisha/uL (NEGATIVE) 01/01/17 15:45 Urine RBC 2 - 5 /hpf (0-2) 01/01/17 15:45 Urine WBC 0 - 2 /hpf (0-6) 01/01/17 15:45 Ur Epithelial Cells 0 - 2 /hpf (0-5) 01/01/17 15:45 Amorphous Sediment Moderate 01/01/17 15:45 Urine Bacteria Mod (NEG) 01/01/17 15:45 Influenza Typ A,B (EIA) Negative for flu a/b (NEGATIVE) 01/02/17 10:08 - Constitutional Appears: Well, No Acute Distress - Head Exam Head Exam: ATRAUMATIC, NORMAL INSPECTION, NORMOCEPHALIC - Eye Exam Eye Exam: Normal appearance - ENT Exam ENT Exam: Normal External Ear Exam - Neck Exam Neck Exam: Normal Inspection - Respiratory Exam Respiratory Exam: NORMAL BREATHING PATTERN - Cardiovascular Exam Cardiovascular Exam: absent: JVD - GI/Abdominal Exam GI & Abdominal Exam: absent: Distended - Rectal Exam Rectal Exam: Deferred - Exam Additional comments: Deferred. - Extremities Exam Extremities Exam: Normal Inspection - Back Exam Back Exam: NORMAL INSPECTION - Neurological Exam Neurological Exam: Alert, Awake, Oriented x3 - Psychiatric Exam Psychiatric exam: Normal Affect, Normal Mood - Skin Skin Exam: Normal Color Assessment and Plan - Assessment and Plan (Free Text) Assessment: Head ache. Left arm pain. Uterine cancer. HTN. COPD. Obesity. Plan: Toradol 30 mg IV x 1. Continue present management.
[2017-01-02] MEDS: HYDROmorphone 1 mg/ml ISec IVP PRN ×3 (02:03→21:20)
[2017-01-02] MEDS: Vancomycin 1gm in NS 250ml 1 GM/250 ML BAG IVPB SCH ×2 (05:13→19:06)
[2017-01-02 07:03] LABS: BASO # 0.02 K/mm3 (0.0-2.0); BASO % 0.3 % (0.0-3.0); EOS % 0.3 % (1.5-5.0); GRAN # 4.55 (1.4-6.5); GRAN % 78.3 % (50.0-68.0); HEMATOCRIT 32.7 % (36.0-48.0); LYMPH # 0.8 (1.2-3.4); LYMPH % 14.4 % (22.0-35.0); MEAN CELL VOLUME 85.8 fl (80.0-105.0); MEAN CORPUSCULAR HEMOGLOBIN 28.6 pg (25.0-35.0); MEAN CORPUSCULAR HGB CONC 33.3 g/dl (31.0-37.0); MEAN PLATELET VOLUME 10.2 fl (7.0-11.0); MONO # 0.4 (0.1-0.6); MONO % 6.7 % (1.0-6.0); RED CELL DISTRIBUTION WIDTH 13.7 % (11.5-14.5); WHITE BLOOD COUNT 5.8 10^3/ul (4.5-11.0)
[2017-01-02 07:35] LABS: FREE T4 1.02 ng/dL (0.78-2.19)
[2017-01-02 07:36] LABS: ALB/GLOB RATIO 0.9 (1.1-1.8); ALKALINE PHOSPHATASE 59 U/L (38-126); ALT/SGPT 61 U/L (7-56); AST/SGOT 78 U/L (14-36); BILIRUBIN,TOTAL 0.6 mg/dL (0.2-1.3); BLOOD UREA NITROGEN 25 mg/dL (7-21); CALCIUM 8.9 mg/dL (8.4-10.5); CARBON DIOXIDE 29 mmol/L (21-33); CHLORIDE 103 mmol/L (98-107); GFR AFRICAN-AMERICAN > 60; GLUCOSE,RANDOM 117 mg/dL (70-110); MAGNESIUM 1.4 mg/dL (1.7-2.2); PHOSPHOROUS 5.9 mg/dL (2.5-4.5); POTASSIUM 4.4 mmol/L (3.6-5.0); SODIUM 136 mmol/L (132-148); TOTAL PROTEIN 6.3 g/dL (5.8-8.3)
[2017-01-02 07:49] LABS: THYROID STIMULATING HORMONE 1.66 mIU/mL (0.46-4.68)
[2017-01-02] MEDS: Insulin Lispro (humaLOG) MEDIUM Coverage SC SCH ×3 (08:30→16:30)
[2017-01-02] MEDS: Piperacillin/Tazobact 3.375 gm 100 ML IVPB SCH ×3 (09:06→21:18)
[2017-01-02] MEDS: Sodium Chloride 0.45% 1,000 ML IV SCH ×2 (09:08→13:03)
[2017-01-02] MEDS ORDERED: Magnesium Sulfate 1 gm in D5W 1 GM/100 ML BAG IV ONE (09:59)
[2017-01-02] MEDS ORDERED: cefTRIAXone 1 gm 1 GM/100 ML BAG IVPB SCH (10:00)
[2017-01-02] MEDS: oxyCODONE 10 mg Immediate Release Tab PO PRN ×2 (13:03→19:15)
--- NOTE | 2017-01-02 14:12 | CP.PCM.CON ---
History of Present Illness - History of Present Illness History of Present Illness: 71 year old female with PMH of recent diagnosis is uterine cancer S/P port-a- cath placement and 2 cycles of chemotheray already, COPD, obesity with BMI 38, HTN, DM, history of cervical cancer, history of degenerative disc disease was brought in to [facility] because of generalized weakness associated with an episode of vomiting yesterday. She had chills but denies fevers, no headache or dizziness, has some pain along the port-a-cath site, no diarrhea, no dysuria, no cough or colds, no dysphagia, no dysuria. In the ED, she was noted to have leukocytosis and fever. Infectious Diseases consult is requested to further evaluate and manage. Review of Systems - Review of Systems All systems: reviewed and no additional remarkable complaints except (as per HPI ) Past Patient History - Infectious Disease Hx of Infectious Diseases: None - Past Social History Smoking Status: Former Smoker - CARDIAC Hx Cardiac Disorders: Yes Hx Hypertension: Yes - PULMONARY Hx Asthma: Yes Hx Chronic Obstructive Pulmonary Disease (COPD): Yes - NEUROLOGICAL Other/Comment: confused and poor historian - RENAL Hx Chronic Kidney Disease: No - ENDOCRINE/METABOLIC Hx Diabetes Mellitus Type 2: Yes - HEMATOLOGICAL/ONCOLOGICAL Hx Cancer: Yes (lymph node, ovarian, lung) - INTEGUMENTARY Other/Comment: multiple bruises to right side, b/l knees, left chest rcw pac skin red swollen warm to touch,redness travels to right neck, tatoo right orbit , dark skin discoloration to buttocks, redness to abd folds, under left breast, lower abd, slight redness to groin, multiple skin tears and bruises to both elbows - MUSCULOSKELETAL/RHEUMATOLOGICAL Hx Falls: Yes - GASTROINTESTINAL Hx Gastrointestinal Disorders: Yes (obese) - GENITOURINARY/GYNECOLOGICAL Hx Cervical Cancer: Yes (cervical conization) - PSYCHIATRIC Hx Substance Use: No - SURGICAL HISTORY Hx Surgeries: Yes (port a cath on right chest) - ANESTHESIA Hx Anesthesia: Yes Hx Anesthesia Reactions: No Hx Malignant Hyperthermia: No Meds Allergies/Adverse Reactions: Allergies Allergy/AdvReac Type Severity Reaction Status Date / Time No Known Allergies Allergy Verified 01/01/17 14:05 - Medications Medications: Current Medications Acetaminophen (Tylenol 325mg Tab) 650 mg PO Q4H PRN PRN Reason: Temperature Last Admin: 01/01/17 20:55 Dose: 650 mg Hydromorphone HCl (Dilaudid) 1 mg IVP Q4H PRN PRN Reason: Pain, moderate (4-7) Last Admin: 01/02/17 02:03 Dose: 1 mg Ceftriaxone Sodium (Rocephin 1 Gram Ivpb) 1 gm in 100 mls @ 100 mls/hr IVPB DAILY [facility] PRN Reason: Protocol Vancomycin HCl (Vancomycin 1gm) 1 gm in 250 mls @ 167 mls/hr IVPB Q12H [facility] PRN Reason: Protocol Last Admin: 01/02/17 05:13 Dose: 167 mls/hr Sodium Chloride (Sodium Chloride 0.45%) 1,000 mls @ 75 mls/hr IV .[id number] [facility] Last Admin: 01/01/17 23:19 Dose: Not Given Insulin Human Lispro (Humalog Med) 0 units SC ACHS [facility] PRN Reason: Protocol Last Admin: 01/01/17 23:16 Dose: Not Given Physical Exam - Constitutional Appears: Chronically Ill - Head Exam Head Exam: NORMAL INSPECTION - ENT Exam ENT Exam: Mucous Membranes Moist - Neck Exam Neck exam: Negative for: Lymphadenopathy, Meningismus - Respiratory Exam Respiratory Exam: Decreased Breath Sounds Additional comments: right anterior chest wall with port-a-cath with surrounding erythema and tenderness - Cardiovascular Exam Cardiovascular Exam: +S1, +S2 - GI/Abdominal Exam GI & Abdominal Exam: Soft. absent: Tenderness Results - Vital Signs Recent Vital Signs: Last Vital Signs Temp 1003 F H 01/02/17 00:01 Pulse 86 01/02/17 06:00 Resp 20 01/02/17 00:01 BP 167/76 H 01/02/17 00:01 Pulse Ox 98 01/02/17 00:01 - Labs Result Diagrams: 01/02/17 06:20 01/02/17 06:20 Labs: Laboratory Results - last 24 hr 01/01/17 01/01/17 01/01/17 15:45 15:55 19:30 WBC RBC Hgb Hct MCV MCH MCHC RDW Plt Count MPV Gran % Lymph % (Auto) [place] % (Auto) Eos % (Auto) Baso % (Auto) Gran # Lymph # [place] # Eos # Baso # pO2 82 H VBG pH 7.46 H VBG pCO2 36.0 L VBG HCO3 25.6 VBG Total CO2 26.7 VBG O2 Sat (Calc) 97.5 H VBG Base Excess 2.0 VBG Potassium 3.7 Sodium 136.0 Chloride 106.0 Glucose 135 H Lactate 1.5 FiO2 21.0 POC Glucose (mg/dL) Lactic Acid 2.8 H Troponin I Free T4 Venous Blood Potassium 3.7 Urine Color Yellow Urine Appearance Clear Urine pH 5.5 Ur Specific [place] >= 1.030 Urine Protein 30 H Urine Glucose (UA) Negative Urine Ketones Negative Urine Blood Moderate H Urine Nitrate Negative Urine Bilirubin Negative Urine Urobilinogen 0.2 Ur Leukocyte Esterase Negative Urine RBC 2 - 5 Urine WBC 0 - 2 Ur Epithelial Cells 0 - 2 Amorphous Sediment Moderate Urine Bacteria Mod 01/01/17 01/01/17 01/02/17 19:30 21:32 06:20 WBC 5.8 D RBC 3.81 Hgb 10.9 L Hct 32.7 L MCV 85.8 MCH 28.6 MCHC 33.3 RDW 13.7 Plt Count 110 L MPV 10.2 Gran % 78.3 H Lymph % (Auto) 14.4 L [place] % (Auto) 6.7 H Eos % (Auto) 0.3 L Baso % (Auto) 0.3 Gran # 4.55 Lymph # 0.8 L [place] # 0.4 Eos # 0.0 Baso # 0.02 pO2 VBG pH VBG pCO2 VBG HCO3 VBG Total CO2 VBG O2 Sat (Calc) VBG Base Excess VBG Potassium Sodium Chloride Glucose Lactate FiO2 POC Glucose (mg/dL) 112 H Lactic Acid Troponin I 0.41 H* Free T4 Venous Blood Potassium Urine Color Urine Appearance Urine pH Ur Specific [place] Urine Protein Urine Glucose (UA) Urine Ketones Urine Blood Urine Nitrate Urine Bilirubin Urine Urobilinogen Ur Leukocyte Esterase Urine RBC Urine WBC Ur Epithelial Cells Amorphous Sediment Urine Bacteria 01/02/17 06:20 WBC RBC Hgb Hct MCV MCH MCHC RDW Plt Count MPV Gran % Lymph % (Auto) [place] % (Auto) Eos % (Auto) Baso % (Auto) Gran # Lymph # [place] # Eos # Baso # pO2 VBG pH VBG pCO2 VBG HCO3 VBG Total CO2 VBG O2 Sat (Calc) VBG Base Excess VBG Potassium Sodium Chloride Glucose Lactate FiO2 POC Glucose (mg/dL) Lactic Acid Troponin I Free T4 1.02 Venous Blood Potassium Urine Color Urine Appearance Urine pH Ur Specific [place] Urine Protein Urine Glucose (UA) Urine Ketones Urine Blood Urine Nitrate Urine Bilirubin Urine Urobilinogen Ur Leukocyte Esterase Urine RBC Urine WBC Ur Epithelial Cells Amorphous Sediment Urine Bacteria Assessment & Plan - Assessment and Plan (Free Text) Plan: Assessment Sepsis due to right anterior chest wall port-a-cath associated skin and skin structure infection and port infection with Staph aureus bacteremia R/O thrombophlebitis recent diagnosis is uterine cancer S/P port-a-cath placement and 2 cycles of chemotherapy already COPD obesity with BMI 38 HTN DM history of cervical cancer history of degenerative disc disease Plan Started patient on on Vancomycin and Zosyn and will give a dose of Daptomycin pending sensitivities of the Staph aureus in the blood follow up 2D echo and will also need doppler U/S to rule out DVT recommend to remove the port and repeat blood cx after port is removed - patient will also need 4-6 weeks of antibiotics because of the Staph aureus infection will monitor clinically overall prognosis is poor discussed with Dr. Butcher
[2017-01-02] MEDS ORDERED: DAPTOmycin 500 mg Inj (Cubicin) IV ONE (14:15)
--- NOTE | 2017-01-02 14:30 | PN ---
DATE: SUBJECTIVE: The patient is a 71-year-old who states she had last chemotherapy on 12/25/2016 in [facility]. Since then, she has not been feeling well. She has been weak as well as she lost appetite. She has been nauseous and she got very sick. Yesterday, she did not know what happened she almost passed out. She did not want to come to the hospital; however, her son called ambulance and she was brought to ER. Complained of generalized weakness and complained of back pain. PHYSICAL EXAMINATION: VITAL SIGNS: She has temperature of 100.3 in the middle of the night, this morning 99, pulse 85, respirations 20, and blood pressure 152/72. LUNGS: Bilateral fair airflow. No rhonchi or crackles. HEART: S1 and S2 audible. ABDOMEN: Soft, obese, and nontender. No rebound. No guarding. NEUROLOGIC: She is awake, alert, oriented, and communicative. Moves all extremities. LABORATORY DATA: WBC is 5.8, hemoglobin is 10.9, hematocrit 32.7, and platelets are 110. Chemistry: Sodium 136, potassium 4.4, chloride 103, CO2 29, BUN 25, creatinine 1.0, blood sugar of 112, magnesium 1.4, AST 78, ALT 61, CPK 1324, and troponin 0.41. Urine shows large blood, but RBCs are negative. Echo is pending. ASSESSMENT: 1. Mild rhabdomyolysis status post fall. 2. Uterine cancer status post chemo on 12/25/2016 in [facility]. 3. History of chronic obstructive pulmonary disease. 4. Degenerative disc disease. 5. Port-A-Cath line sepsis, gram positive cocci. PLAN: Currently the patient is on IV fluids. We will continue her on Dilaudid. We will supplement her magnesium. She is on vancomycin and Rocephin and was seen by ID and started on piperacillin. I will give her oxycodone for [id number] pain and for severe pain, she can have Dilaudid. Awaiting Cardiology input, seems to be cardiac ischemia less likely, probably secondary to rhabdomyolysis because the patient has been on floor for sometime that could be part of muscle injury. We will follow up troponin and continue current antibiotics. We will follow up echocardiogram to rule out endocarditis. Sumit Butcher MD [facility] # [id number]
[2017-01-02] MEDS: Pantoprazole 40 mg EC Tab PO SCH (16:02)
--- NOTE | 2017-01-02 19:33 | CARD ---
APPROVED REPORT EXAM: Two-dimensional and M-mode echocardiogram with Doppler and color Doppler. INDICATION 2D DIMENSIONS IVSd1.3 (0.7-1.1cm)LVDd3.7 (3.9-5.9cm) PWd1.3 (0.7-1.1cm)LVDs2.4 (2.5-4.0cm) FS (%) 37.0 %LVEF (%)67.8 (>50%) M-Mode DIMENSIONS Left Atrium (MM)2.80 (2.5-4.0cm)Aortic Root3.80 (2.2-3.7cm) Aortic Cusp Exc.1.80 (1.5-2.0cm) Aortic Valve AoV Peak Jiwnyvag451.0cm/Jay Peak GR.8mmHg Mitral Valve MV E Ektpksjg74.9cm/sMV A Vrmfgomq57.7cm/sE/A ratio0.5 TDI Lateral E' Peak V7.99cm/sMedial E' Peak V4.58cm/sE/Lateral E'6.2 E/Medial E'10.9 Tricuspid Valve TR Peak [id number]/sRAP [id number] Peak Gr.9mmHg [id number] LEFT VENTRICLE The left ventricle is normal size. There is borderline concentric left ventricular hypertrophy. The left ventricular function is normal. The left ventricular ejection fraction is within the normal range. There is normal LV segmental wall motion. Transmitral Doppler flow pattern is Grade I-abnormal relaxation pattern. RIGHT VENTRICLE The right ventricle is normal size. There is normal right ventricular wall thickness. The right ventricular systolic function is normal. ATRIA The left atrium size is normal. The right atrium size is normal. AORTIC VALVE The aortic valve is not well visualized. MITRAL VALVE The mitral valve is not well visualized. TRICUSPID VALVE There is no pulmonary hypertension. GREAT VESSELS The aortic root is normal in size. The IVC was not visualized. PERICARDIAL EFFUSION There is a trace circumferential pericardial effusion. <Conclusion> Poor Echo Window The left ventricle is normal size. There is borderline concentric left ventricular hypertrophy. The left ventricular function is normal. The left ventricular ejection fraction is within the normal range. There is normal LV segmental wall motion. Transmitral Doppler flow pattern is Grade I-abnormal relaxation pattern.
--- NOTE | 2017-01-02 22:42 | CON ---
DATE: 01/02/2017 LOCATION: The patient is in room 276, bed 2. REASON FOR CONSULTATION: History of fall, hypertension, uterine cancer, troponin elevated. HISTORY OF PRESENT ILLNESS: The patient is a 71-year-old female who recently found to have uterine cancer for which chemotherapy was suggested. The patient also was treated in the past for hypertension. Later on, she was told blood pressure was normal. The patient states that she was feeling very week and she fell down during night and she could not get up this morning. She was able to call 911. The patient denies chest pain, shortness of breath, or palpitation. PAST MEDICAL HISTORY: The patient's history positive for degenerative disk disease, COPD, hypertension, and the patient had uterine cancer and also had insertion of Port-A-Cath. ALLERGIES: THE PATIENT DENIES ANY ALLERGIES. PERSONAL HISTORY: The patient used to smoke one pack a day, but stopped about 3 years ago, drinks socially. HOME MEDICATIONS: The patient was on amitriptyline 25 mg at bedtime, Advair, Protonix 40, valsartan 160/12.5 mg daily. She was also on metformin 500 mg b.i.d. REVIEW OF SYSTEMS: All the systems reviewed. Positive mentioned in the history, otherwise negative. PHYSICAL EXAMINATION: VITAL SIGNS: Blood pressure 148/92, early blood pressure 152/72; respirations 20; pulse 85; temperature 99. HEENT: Head is normocephalic. Eyes, pupils normal. Conjunctivae normal. Nose and throat normal. NECK: JVP low. Carotids equal. THORAX: The patient has A Port-A-Cath and there is erythema around the Port-A-Cath insertion. LUNGS: Clear. CARDIOVASCULAR: S1 and S2. ABDOMEN: Sot, nontender, no organomegaly. EXTREMITIES: No clubbing, no cyanosis. LABORATORY DATA: WBC yesterday was 12.9, today is 5.8; hemoglobin yesterday 12.8, today 10.9; hematocrit yesterday 37.2, today 32.7; platelets yesterday 161, today 110. Granulocyte 91.6 yesterday, today 78.3. Sodium 136, potassium 4.4. BUN 25, creatinine 1.0. Random sugar 134, another random sugar 117. Phosphorus 5.9, calcium 8.9. Magnesium 1.4. AST 78, ALT 61. CPK total 1324. Troponin 0.41. Total protein 6.3, albumin 3.0. TSH 1.66, which is normal. Chest x-ray, no active disease. No significant interval change compared to prior examination. EKG showed sinus tachycardia, 104 per minute, Q in III and aVL suggestive of old inferior wall [place]. DIAGNOSES: Mildly elevated troponin with elevated CPK. The patient being fell on floor, might be related to elevated CPK and fall. Sepsis probably related to Port-A-Cath because of redness and erythema around Port-A-Cath. Hypertension, diabetes mellitus, uterine cancer, rhabdomyolysis, and generative disease of spine. PLAN: We will repeat , repeat troponin in the morning along with CPK. Also we check lipid profile and we will repeat CBC. Echo has been already ordered, we will follow the echo. Also, we start Lopressor 50 b.i.d., Ecotrin 81 daily, Protonix 40 daily. The patient is on daptomycin 650 mg IV once was given. Now, the patient is on Rocephin 1 g that was also once given. Now the patient is on vancomycin 1 g IV q. 12 hours and Zosyn 3.37 g IV q. 6 hours. The patient does not have any anginal symptoms at present. We will continue present therapy. We will follow with you. Astrid Macedo MD
[2017-01-03] MEDS: HYDROmorphone 1 mg/ml ISec IVP PRN ×2 (00:56→17:34)
[2017-01-03] MEDS: oxyCODONE 10 mg Immediate Release Tab PO PRN ×2 (02:26→22:11)
--- NOTE | 2017-01-03 04:24 | CP.PCM.PN ---
Subjective - Date & Time of Evaluation Date of Evaluation: 01/03/17 Time of Evaluation: 04:22 - Subjective Subjective: S: Requested a sleeping pill. Benadryl was ordered. When I saw her, she mentioned that she did not want a sleeping pill. Pertinent medical record was reviewed. O: Last Vital Signs 3 Temp 98.4 F 01/02/17 18:00 Pulse 99 H 01/02/17 19:15 Resp 21 01/02/17 18:00 BP 106/63 01/02/17 18:00 Pulse Ox 98 01/02/17 06:00 Awake, alert, not in distress. LUNGS:Normal breathing pattern. A:Adjustment insomnia. P: Benadryl 25 mg po x 1. Objective - Vital Signs/Intake and Output Vital Signs (last 24 hours): Temp Pulse Resp BP Pulse Ox 98.4 F 99 H 21 106/63 98 01/02/17 18:00 01/02/17 19:15 01/02/17 18:00 01/02/17 18:00 01/02/17 06:00 Intake and Output: 01/02/17 01/03/17 18:59 06:59 Intake Total 120 Output Total 300 Balance -180 - Medications Medications: Current Medications Acetaminophen (Tylenol 325mg Tab) 650 mg PO Q4H PRN PRN Reason: Temperature Last Admin: 01/03/17 02:25 Dose: 650 mg Aspirin (Ecotrin) 81 mg PO DAILY [facility] Last Admin: 01/02/17 16:02 Dose: 81 mg Hydromorphone HCl (Dilaudid) 1 mg IVP Q4H PRN PRN Reason: Pain, moderate (4-7) Last Admin: 01/03/17 00:56 Dose: 1 mg Vancomycin HCl (Vancomycin 1gm) 1 gm in 250 mls @ 167 mls/hr IVPB Q12H [facility] PRN Reason: Protocol Last Admin: 01/02/17 19:06 Dose: 167 mls/hr Sodium Chloride (Sodium Chloride 0.45%) 1,000 mls @ 75 mls/hr IV .[id number] [facility] Last Admin: 01/02/17 13:03 Dose: 75 mls/hr Piperacillin Sod/Tazobactam Sod (Zosyn 3.375 In Ns 100ml) 100 mls @ 200 mls/hr IVPB Q6 [facility] PRN Reason: Protocol Stop: 01/09/17 07:38 Last Admin: 01/02/17 21:18 Dose: 200 mls/hr Insulin Human Lispro (Humalog Med) 0 units SC ACHS [facility] PRN Reason: Protocol Last Admin: 01/02/17 16:30 Dose: Not Given Metoprolol Tartrate (Lopressor) 50 mg PO BID [facility] Last Admin: 01/02/17 19:15 Dose: 50 mg Oxycodone HCl (Oxycodone Immediate Release Tab) 10 mg PO Q6H PRN PRN Reason: Pain, moderate (4-7) Last Admin: 01/03/17 02:26 Dose: 10 mg Pantoprazole Sodium (Protonix Ec Tab) 40 mg PO DAILY [facility] Last Admin: 01/02/17 16:02 Dose: 40 mg - Labs Labs: 01/02/17 06:20 01/02/17 06:20 PT 12.8 SECONDS (9.4-12.5) H 01/01/17 14:30 INR 1.17 (0.93-1.08) H 01/01/17 14:30 APTT 34.7 Seconds (25.1-36.5) 01/01/17 14:30
[2017-01-03] MEDS: Insulin Lispro (humaLOG) MEDIUM Coverage SC SCH ×5 (05:43→22:11)
[2017-01-03] MEDS: Sodium Chloride 0.45% 1,000 ML IV SCH ×2 (05:45→14:33)
[2017-01-03] MEDS: Piperacillin/Tazobact 3.375 gm 100 ML IVPB SCH ×5 (05:46→23:31)
--- NOTE | 2017-01-03 06:15 | CP.PCM.CON ---
History of Present Illness - History of Present Illness History of Present Illness: Surgery 71 year old female with PMH of uterine/Cervical cancer S/P port-a-cath placement s/p chemotheray, COPD, obesity with BMI 38, HTN, DM, history of degenerative disc disease was [place] in [place] [facility] of generalized weakness associated with an episode of vomiting. Surgery is consulted to evaluate for infected port. Reports redeness around the port site and abscess drainage about a week ago. Reports F/C/N/V. Denies no headache or dizziness, has some pain along the port-a-cath site, no diarrhea, no dysuria, no cough or colds, no dysphagia, no dysuria. In the ED, she was noted to have leukocytosis and fever 101.9. Denies IV Drug use. Pt wants it taken out. Blood culture grew Gram + cocci. Echo neg for vegetation. Review of Systems - Constitutional Constitutional: Chills, Fever, Malaise Past Patient History - Infectious Disease Hx of Infectious Diseases: None - Past Social History Smoking Status: Former Smoker - CARDIAC Hx Cardiac Disorders: Yes Hx Hypertension: Yes - PULMONARY Hx Asthma: Yes Hx Chronic Obstructive Pulmonary Disease (COPD): Yes - NEUROLOGICAL Other/Comment: confused and poor historian - RENAL Hx Chronic Kidney Disease: No - ENDOCRINE/METABOLIC Hx Diabetes Mellitus Type 2: Yes - HEMATOLOGICAL/ONCOLOGICAL Hx Cancer: Yes (lymph node, ovarian, lung) - INTEGUMENTARY Other/Comment: multiple bruises to right side, b/l knees, left chest rcw pac skin red swollen warm to touch,redness travels to right neck, tatoo right orbit , dark skin discoloration to buttocks, redness to abd folds, under left breast, lower abd, slight redness to groin, multiple skin tears and bruises to both elbows - MUSCULOSKELETAL/RHEUMATOLOGICAL Hx Falls: Yes - GASTROINTESTINAL Hx Gastrointestinal Disorders: Yes (obese) - GENITOURINARY/GYNECOLOGICAL Hx Cervical Cancer: Yes (cervical conization) - PSYCHIATRIC Hx Substance Use: No - SURGICAL HISTORY Hx Surgeries: Yes (port a cath on right chest) - ANESTHESIA Hx Anesthesia: Yes Hx Anesthesia Reactions: No Hx Malignant Hyperthermia: No Meds Allergies/Adverse Reactions: Allergies Allergy/AdvReac Type Severity Reaction Status Date / Time No Known Allergies Allergy Verified 01/01/17 14:05 - Medications Medications: Current Medications Acetaminophen (Tylenol 325mg Tab) 650 mg PO Q4H PRN PRN Reason: Temperature Last Admin: 01/03/17 02:25 Dose: 650 mg Aspirin (Ecotrin) 81 mg PO DAILY [facility] Last Admin: 01/02/17 16:02 Dose: 81 mg Hydromorphone HCl (Dilaudid) 1 mg IVP Q4H PRN PRN Reason: Pain, moderate (4-7) Last Admin: 01/03/17 00:56 Dose: 1 mg Vancomycin HCl (Vancomycin 1gm) 1 gm in 250 mls @ 167 mls/hr IVPB Q12H [facility] PRN Reason: Protocol Last Admin: 01/02/17 19:06 Dose: 167 mls/hr Sodium Chloride (Sodium Chloride 0.45%) 1,000 mls @ 75 mls/hr IV .[id number] [facility] Last Admin: 01/03/17 05:45 Dose: Not Given Piperacillin Sod/Tazobactam Sod (Zosyn 3.375 In Ns 100ml) 100 mls @ 200 mls/hr IVPB Q6 [facility] PRN Reason: Protocol Stop: 01/09/17 07:38 Last Admin: 01/03/17 05:46 Dose: Not Given Insulin Human Lispro (Humalog Med) 0 units SC ACHS [facility] PRN Reason: Protocol Last Admin: 01/03/17 05:43 Dose: Not Given Metoprolol Tartrate (Lopressor) 50 mg PO BID [facility] Last Admin: 01/02/17 19:15 Dose: 50 mg Oxycodone HCl (Oxycodone Immediate Release Tab) 10 mg PO Q6H PRN PRN Reason: Pain, moderate (4-7) Last Admin: 01/03/17 02:26 Dose: 10 mg Pantoprazole Sodium (Protonix Ec Tab) 40 mg PO DAILY [facility] Last Admin: 01/02/17 16:02 Dose: 40 mg Physical Exam - Constitutional Appears: No Acute Distress - Head Exam Head Exam: ATRAUMATIC, NORMAL INSPECTION, NORMOCEPHALIC - Eye Exam Eye Exam: EOMI, Normal appearance, PERRL Pupil Exam: NORMAL ACCOMODATION, PERRL Additional comments: Tattoo on her face. [place] hair. - ENT Exam ENT Exam: Mucous Membranes Moist, Normal Exam - Neck Exam Neck exam: Positive for: Normal Inspection - Respiratory Exam Respiratory Exam: Clear to Auscultation Bilateral, NORMAL BREATHING PATTERN - Cardiovascular Exam Cardiovascular Exam: REGULAR RHYTHM - GI/Abdominal Exam GI & Abdominal Exam: Normal Bowel Sounds, Soft. absent: Tenderness - Extremities Exam Extremities exam: Negative for: normal inspection - Back Exam Back exam: NORMAL INSPECTION - Neurological Exam Neurological exam: Alert, CN II-XII Intact, Normal Gait, Oriented x3, Reflexes Normal - Skin Skin Exam: Erythema, Warm Additional comments: Port site: erythema 3x4cm. Mild TTP. abscess drainage. Central excoriation. Results - Vital Signs Recent Vital Signs: Last Vital Signs Temp 98.9 F 01/03/17 00:01 Pulse 84 01/03/17 02:00 Resp 20 01/03/17 00:01 BP 162/81 H 01/03/17 00:01 Pulse Ox 94 L 01/03/17 00:01 - Labs Result Diagrams: 01/03/17 06:30 01/02/17 06:20 Labs: Laboratory Results - last 24 hr 01/02/17 01/02/17 01/02/17 06:20 06:20 06:20 WBC 5.8 D RBC 3.81 Hgb 10.9 L Hct 32.7 L MCV 85.8 MCH 28.6 MCHC 33.3 RDW 13.7 Plt Count 110 L MPV 10.2 Gran % 78.3 H Lymph % (Auto) 14.4 L Hickman % (Auto) 6.7 H Eos % (Auto) 0.3 L Baso % (Auto) 0.3 Gran # 4.55 Lymph # 0.8 L Hickman # 0.4 Eos # 0.0 Baso # 0.02 Sodium 136 Potassium 4.4 Chloride 103 Carbon Dioxide 29 Anion Gap 8 L BUN 25 H Creatinine 1.0 Est GFR ( Amer) > 60 Est GFR (Non-Af Amer) 55 POC Glucose (mg/dL) Random Glucose 117 H Calcium 8.9 Phosphorus 5.9 H Magnesium 1.4 L Total Bilirubin 0.6 AST 78 H D ALT 61 H Alkaline Phosphatase 59 Total Creatine Kinase 1324 H CK-MB (CK-2) 3.2 CK-MB (CK-2) % Cancelled Total Protein 6.3 Albumin 3.0 Globulin 3.2 Albumin/Globulin Ratio 0.9 L Procalcitonin Free T4 1.02 TSH 3rd Generation 1.66 Influenza Typ A,B (EIA) 01/02/17 01/02/17 01/02/17 07:34 08:00 10:08 WBC RBC Hgb Hct MCV MCH MCHC RDW Plt Count MPV Gran % Lymph % (Auto) Hickman % (Auto) Eos % (Auto) Baso % (Auto) Gran # Lymph # Hickman # Eos # Baso # Sodium Potassium Chloride Carbon Dioxide Anion Gap BUN Creatinine Est GFR ( Amer) Est GFR (Non-Af Amer) POC Glucose (mg/dL) 99 Random Glucose Calcium Phosphorus Magnesium Total Bilirubin AST ALT Alkaline Phosphatase Total Creatine Kinase CK-MB (CK-2) CK-MB (CK-2) % Total Protein Albumin Globulin Albumin/Globulin Ratio Procalcitonin 24.76 H Free T4 TSH 3rd Generation Influenza Typ A,B (EIA) Negative for flu a/b 01/02/17 11:31 WBC RBC Hgb Hct MCV MCH MCHC RDW Plt Count MPV Gran % Lymph % (Auto) Hickman % (Auto) Eos % (Auto) Baso % (Auto) Gran # Lymph # Hickman # Eos # Baso # Sodium Potassium Chloride Carbon Dioxide Anion Gap BUN Creatinine Est GFR ( Amer) Est GFR (Non-Af Amer) POC Glucose (mg/dL) 134 H Random Glucose Calcium Phosphorus Magnesium Total Bilirubin AST ALT Alkaline Phosphatase Total Creatine Kinase CK-MB (CK-2) CK-MB (CK-2) % Total Protein Albumin Globulin Albumin/Globulin Ratio Procalcitonin Free T4 TSH 3rd Generation Influenza Typ A,B (EIA) Assessment & Plan - Assessment and Plan (Free Text) Assessment: Infected port , bacteremia Febrile -ABX -Planned for OR 1030 this AM for port removal. -NPO -Medical management DANGELO Mariscal
[2017-01-03 07:18] LABS: BASO # 0.02 K/mm3 (0.0-2.0); BASO % 0.4 % (0.0-3.0); EOS # 0.1 (0.0-0.7); EOS % 2.1 % (1.5-5.0); GRAN # 2.89 (1.4-6.5); GRAN % 55.3 % (50.0-68.0); HEMATOCRIT 32.3 % (36.0-48.0); LYMPH # 1.5 (1.2-3.4); LYMPH % 27.8 % (22.0-35.0); MEAN CORPUSCULAR HEMOGLOBIN 28.7 pg (25.0-35.0); MEAN CORPUSCULAR HGB CONC 33.7 g/dl (31.0-37.0); MEAN PLATELET VOLUME 10.3 fl (7.0-11.0); MONO # 0.8 (0.1-0.6); MONO % 14.4 % (1.0-6.0); RED CELL DISTRIBUTION WIDTH 13.9 % (11.5-14.5); WHITE BLOOD COUNT 5.2 10^3/ul (4.5-11.0)
[2017-01-03] MEDS: Vancomycin 1gm in NS 250ml 1 GM/250 ML BAG IVPB SCH ×2 (07:55→17:45)
[2017-01-03 08:32] LABS: TROPONIN I 0.32 ng/mL
--- NOTE | 2017-01-03 09:31 | PN ---
DATE: 01/03/2017 SUBJECTIVE: The patient has no complaints of any chest pain or shortness of breath. No headaches or dizziness. PHYSICAL EXAMINATION: VITAL SIGNS: Temperature is 98, pulse is 75, blood pressure is 136/79, respirations 20. GENERAL: The patient is lying in bed, flat, comfortable. HEENT: No oral lesion. Anicteric sclerae. Moist mucosa. NECK: No JVD, adenopathy, or thyromegaly. CARDIOVASCULAR: S1 and S2, regular. No murmurs, rubs, or gallops. LUNGS: Clear to auscultation bilaterally. No wheeze, rales, or rhonchi. ABDOMEN: Bowel sounds are positive, soft, nontender and nondistended. EXTREMITIES: No cyanosis, clubbing or edema. CHEST: In the right chest, there is a port, there is erythema that is in the tunnel area. LABORATORY DATA: White count of 5.2, hemoglobin 10.9, creatinine is 1.0. ASSESSMENT: 1. Sepsis secondary to staph. 2. Port-A-Cath line sepsis. 3. Chronic obstructive pulmonary disease. 4. Degenerative joint disease. 5. Uterine cancer status post chemotherapy. 6. Fall. PLAN: The patient is currently comfortable. She knows that she needs to get this catheter taken out. She is upset that she is not able to speak to Dr. Butcher, who I am covering. She is asking the surgical team to contact the patient's oncologist at [facility] in [place]. I did get his number and gave it to the resident, who is going to call to speak to the oncologist to confirm that it is okay to take the catheter out. I do believe that the patient's Port-A-Cath should be taken out because of the tunnel infection as well as sepsis that is seen on cultures. The patient is on Dilaudid for pain. She is going to continue with aspirin. There are mild troponins that are elevated. Dr. Carpenter is aware. I did speak to him regarding the case. Given risks and benefits, I believe that the catheter should be taken out. We will allow Cardiology to make the decision by preop clearance that this is outside my speciality. Mehrdad Cartagena MD [facility] # [phone]
[2017-01-03] MEDS ORDERED: Bupivacaine 0.5% Inj(30mL) ONE (09:55)
[2017-01-03] MEDS ORDERED: Midazolam 2 MG/2 ML VIAL ONE (09:59)
[2017-01-03] MEDS ORDERED: Propofol 10 mg/ml Inj (20 ML) ONE (10:02)
--- NOTE | 2017-01-03 10:50 | PN ---
DATE: 01/03/2017 REASON FOR CONSULTATION AND FOLLOWUP: History of fall, hypertension, uterine cancer, elevated troponin, possibly infected Port-A-Cath. SUBJECTIVE: The patient denies any chest pain, shortness of breath, or any palpitation. PHYSICAL EXAMINATION: GENERAL: Not in apparent distress, wanted to get in touch with bread racker at [facility] for chemotherapy. No chest pain. VITAL SIGNS: As follows: Temperature afebrile, heart rate 70, blood pressure 133/79. HEENT: PERRLA. Extraocular muscles intact. NECK: Supple. No carotid bruit or thyromegaly. CHEST: Clear to auscultation. HEART: S1 and S2 regular. ABDOMEN: Soft. EXTREMITIES: Clubbing and cyanosis negative. LABORATORY DATA: Blood workup as follows: WBC 5.8, hemoglobin 10.9, hematocrit 32.3, platelet count 109. Chemistry shows sodium 133, potassium 4.4, chloride 103, carbon dioxide 29, anion gap of 8, BUN 25, and creatinine 1.0. Total CPK 1324. Troponin 0.35 and 0.41. EKG showed inferior infarct, age undetermined. Echocardiography done yesterday that showed normal LV function. Ejection fraction within normal limits. IMPRESSION: Status post fall, status post rhabdomyolysis, 1300 WBC, positive troponin, mostly likely secondary to positive rhabdomyolysis but cannot ruled out underlying coronary artery disease, history of endometrial cancer status post chemo, possible infected Port-A-Cath because of redness and erythema noted in the right side of the chest, hypertension, hyperlipidemia. RECOMMENDATIONS: Broad-spectrum antibiotics, no evidence of endocarditis noted. We will fractionate CPK and order CPK this morning. So far, no evidence of chest pain or ischemia noted, though we will add beta-tristen, aspirin as well as low-dose nitrate as blood pressure is tolerated because blood pressure so we will put Imdur 30. We will follow with you. Thank you Dr. Butcher for the opportunity in taking care of the patient, Mary Sanz. Astrid Carpenter MD
--- NOTE | 2017-01-03 11:12 | PCM.SURG1 ---
Surgeon's Initial Post Op Note - Surgeon's Notes Surgeon: Davey PETERSON [employer] Manager: Heather PGY1 Type of Anesthesia: IV Sedation, Local Anesthesia Administered By: Nataly Pre-Operative Diagnosis: Infected portacath Operative Findings: See op report. Purulent discharge Post-Operative Diagnosis: same Operation Performed: Removal of infected portacath Specimen/Specimens Removed: Wound culture, Port lumen fluid culture, Portacath Estimated Blood Loss: EBL {In ML}: 2 Blood Products Given: N/A Drains Used: No Drains Post-Op Condition: Good Date of Surgery/Procedure: 01/03/17 Time of Surgery/Procedure: 11:12
[2017-01-03] MEDS ORDERED: Sodium Chloride 0.9% 1,000 ML IV SCH (11:15)
[2017-01-03] MEDS: Pantoprazole 40 mg EC Tab PO SCH (12:45)
--- NOTE | 2017-01-03 16:14 | CP.PCM.PN ---
Subjective - Date & Time of Evaluation Date of Evaluation: 01/03/17 Time of Evaluation: 15:00 - Subjective Subjective: Port has been removed today, no fevers overnight, still with pain in the anterior chest area, no nausea, no diarrhea, no headache, no pruritus. Objective - Vital Signs/Intake and Output Vital Signs (last 24 hours): Temp Pulse Resp BP Pulse Ox 98 F 75 20 136/79 96 01/03/17 06:00 01/03/17 06:00 01/03/17 06:00 01/03/17 06:00 01/03/17 06:00 Intake and Output: 01/03/17 01/03/17 06:59 18:59 Intake Total 480 Output Total 300 Balance 180 - Medications Medications: Current Medications Acetaminophen (Tylenol 325mg Tab) 650 mg PO Q4H PRN PRN Reason: Temperature Last Admin: 01/03/17 02:25 Dose: 650 mg Aspirin (Ecotrin) 81 mg PO DAILY [facility] Last Admin: 01/02/17 16:02 Dose: 81 mg Hydromorphone HCl (Dilaudid) 1 mg IVP Q4H PRN PRN Reason: Pain, moderate (4-7) Last Admin: 01/03/17 00:56 Dose: 1 mg Vancomycin HCl (Vancomycin 1gm) 1 gm in 250 mls @ 167 mls/hr IVPB Q12H [facility] PRN Reason: Protocol Last Admin: 01/02/17 19:06 Dose: 167 mls/hr Sodium Chloride (Sodium Chloride 0.45%) 1,000 mls @ 75 mls/hr IV .[id number] [facility] Last Admin: 01/03/17 05:45 Dose: Not Given Piperacillin Sod/Tazobactam Sod (Zosyn 3.375 In Ns 100ml) 100 mls @ 200 mls/hr IVPB Q6 [facility] PRN Reason: Protocol Stop: 01/09/17 07:38 Last Admin: 01/03/17 06:34 Dose: 200 mls/hr Insulin Human Lispro (Humalog Med) 0 units SC ACHS [facility] PRN Reason: Protocol Last Admin: 01/03/17 05:43 Dose: Not Given Metoprolol Tartrate (Lopressor) 50 mg PO BID [facility] Last Admin: 01/02/17 19:15 Dose: 50 mg Oxycodone HCl (Oxycodone Immediate Release Tab) 10 mg PO Q6H PRN PRN Reason: Pain, moderate (4-7) Last Admin: 01/03/17 02:26 Dose: 10 mg Pantoprazole Sodium (Protonix Ec Tab) 40 mg PO DAILY [facility] Last Admin: 01/02/17 16:02 Dose: 40 mg - Labs Labs: 01/03/17 06:30 01/02/17 06:20 PT 12.8 SECONDS (9.4-12.5) H 01/01/17 14:30 INR 1.17 (0.93-1.08) H 01/01/17 14:30 APTT 34.7 Seconds (25.1-36.5) 01/01/17 14:30 - Constitutional Appears: Non-toxic - Head Exam Head Exam: NORMAL INSPECTION - ENT Exam ENT Exam: Mucous Membranes Moist - Neck Exam Neck Exam: absent: Lymphadenopathy, Meningismus - Respiratory Exam Respiratory Exam: Decreased Breath Sounds - Cardiovascular Exam Cardiovascular Exam: +S1, +S2 - GI/Abdominal Exam GI & Abdominal Exam: Soft. absent: Tenderness Assessment and Plan - Assessment and Plan (Free Text) Plan: Assessment Sepsis due to right anterior chest wall port-a-cath associated skin and skin structure infection and port infection with Staph aureus bacteremia R/O thrombophlebitis S/P port removal today recent diagnosis is uterine cancer S/P port-a-cath placement and 2 cycles of chemotherapy already COPD obesity with BMI 38 HTN DM history of cervical cancer history of degenerative disc disease Plan continue Vancomycin and Zosyn and was given a dose of Daptomycin pending sensitivities of the Staph aureus in the blood - will repeat blood cx today since the port has been removed follow up 2D echo and doppler U/S to rule out DVT patient will also need 4-6 weeks of antibiotics because of the Staph aureus infection will continue monitor clinically overall prognosis is poor discussed with Dr. Butcher previously
[2017-01-04] MEDS: HYDROmorphone 1 mg/ml ISec IVP PRN (03:15)
[2017-01-04] MEDS: Vancomycin 1gm in NS 250ml 1 GM/250 ML BAG IVPB SCH (05:24)
[2017-01-04] MEDS: Piperacillin/Tazobact 3.375 gm 100 ML IVPB SCH (05:25)
[2017-01-04] MEDS: Sodium Chloride 0.45% 1,000 ML IV SCH (05:26)
[2017-01-04] MEDS: oxyCODONE 10 mg Immediate Release Tab PO PRN ×4 (05:30→22:53)
--- NOTE | 2017-01-04 05:57 | CP.PCM.PN ---
Subjective - Date & Time of Evaluation Date of Evaluation: 01/04/17 Time of Evaluation: 05:54 - Subjective Subjective: As per nurse patient had multiple bigeminy,trigeminy on monitor. Heart rate went down upto 40 on pulse ox machine. Checked with certified emergency vehicle technician. They were present in previous shift also. Patient seen. Has no complaints. This 71 year old woman was admitted with lethargy, vomiting,sepsis, rhabdomyolysis. Has PMH of uterine cancer, COPD,DJD, borderline HTN, NIDDM. Medical record was reviewed. On lopressor. Objective - Vital Signs/Intake and Output Vital Signs (last 24 hours): Temp Pulse Resp BP Pulse Ox 98 F 95 H 20 141/80 98 01/03/17 16:25 01/03/17 17:36 01/03/17 16:25 01/03/17 17:36 01/03/17 16:25 Intake and Output: 01/03/17 01/04/17 18:59 06:59 Intake Total 1960 920 Balance 1960 920 - Medications Medications: Current Medications Acetaminophen (Tylenol 325mg Tab) 650 mg PO Q4H PRN PRN Reason: Temperature Last Admin: 01/03/17 02:25 Dose: 650 mg Aspirin (Ecotrin) 81 mg PO DAILY [facility] Last Admin: 01/03/17 12:45 Dose: 81 mg Hydromorphone HCl (Dilaudid) 1 mg IVP Q4H PRN PRN Reason: Pain, moderate (4-7) Last Admin: 01/04/17 03:15 Dose: 1 mg Vancomycin HCl (Vancomycin 1gm) 1 gm in 250 mls @ 167 mls/hr IVPB Q12H [facility] PRN Reason: Protocol Last Admin: 01/04/17 05:24 Dose: 167 mls/hr Sodium Chloride (Sodium Chloride 0.45%) 1,000 mls @ 75 mls/hr IV .[id number] [facility] Last Admin: 01/04/17 05:26 Dose: 75 mls/hr Piperacillin Sod/Tazobactam Sod (Zosyn 3.375 In Ns 100ml) 100 mls @ 200 mls/hr IVPB Q6 [facility] PRN Reason: Protocol Stop: 01/09/17 07:38 Last Admin: 01/04/17 05:25 Dose: 200 mls/hr Insulin Human Lispro (Humalog Med) 0 units SC ACHS [facility] PRN Reason: Protocol Last Admin: 01/03/17 22:11 Dose: Not Given Isosorbide Mononitrate (Imdur Er) 30 mg PO DAILY [facility] Last Admin: 01/03/17 12:45 Dose: 30 mg Loratadine (Claritin) 10 mg PO DAILY [facility] Metoprolol Tartrate (Lopressor) 50 mg PO BID [facility] Last Admin: 01/03/17 17:36 Dose: 50 mg Oxycodone HCl (Oxycodone Immediate Release Tab) 10 mg PO Q6H PRN PRN Reason: Pain, moderate (4-7) Last Admin: 01/04/17 05:30 Dose: 10 mg Pantoprazole Sodium (Protonix Ec Tab) 40 mg PO DAILY [facility] Last Admin: 01/03/17 12:45 Dose: 40 mg - Labs Labs: 01/03/17 06:30 01/02/17 06:20 PT 12.8 SECONDS (9.4-12.5) H 01/01/17 14:30 INR 1.17 (0.93-1.08) H 01/01/17 14:30 APTT 34.7 Seconds (25.1-36.5) 01/01/17 14:30 - Constitutional Appears: Well, No Acute Distress - Head Exam Head Exam: ATRAUMATIC, NORMAL INSPECTION, NORMOCEPHALIC - Eye Exam Eye Exam: Normal appearance - ENT Exam ENT Exam: Normal External Ear Exam - Neck Exam Neck Exam: Normal Inspection - Respiratory Exam Respiratory Exam: NORMAL BREATHING PATTERN - Cardiovascular Exam Cardiovascular Exam: absent: JVD - GI/Abdominal Exam GI & Abdominal Exam: absent: Distended - Rectal Exam Rectal Exam: Deferred - Exam Additional comments: Deferred. - Extremities Exam Extremities Exam: Normal Inspection - Back Exam Back Exam: NORMAL INSPECTION - Neurological Exam Neurological Exam: Alert, Awake - Psychiatric Exam Psychiatric exam: Normal Affect, Normal Mood - Skin Skin Exam: Normal Color Assessment and Plan - Assessment and Plan (Free Text) Assessment: Bradycardia. Bigeminy. Trigeminy. Sepsis. Rhabdomyolysis. NIDDM. HTN. DJD. COPD. Uterine cancer. Plan: Will hold now, dose may be adjusted or may be discontinued, pet care assistant will be notified.
--- NOTE | 2017-01-04 07:43 | CP.PCM.PCO ---
Physician Communication Note - Physician Communication Note Physician Communication Note: Packing to be removed today
[2017-01-04] MEDS: Insulin Lispro (humaLOG) MEDIUM Coverage SC SCH ×4 (07:58→21:59)
[2017-01-04 08:34] LABS: BASO # 0.03 K/mm3 (0.0-2.0); BASO % 0.5 % (0.0-3.0); EOS # 0.2 (0.0-0.7); GRAN # 2.29 (1.4-6.5); GRAN % 41.6 % (50.0-68.0); HEMATOCRIT 32.8 % (36.0-48.0); LYMPH % 35.8 % (22.0-35.0); MEAN CELL VOLUME 85.2 fl (80.0-105.0); MEAN CORPUSCULAR HEMOGLOBIN 28.6 pg (25.0-35.0); MEAN CORPUSCULAR HGB CONC 33.5 g/dl (31.0-37.0); MEAN PLATELET VOLUME 10.2 fl (7.0-11.0); MONO % 18.1 % (1.0-6.0); RED CELL DISTRIBUTION WIDTH 13.7 % (11.5-14.5); WHITE BLOOD COUNT 5.5 10^3/ul (4.5-11.0)
[2017-01-04 08:57] LABS: ALKALINE PHOSPHATASE 73 U/L (38-126); ALT/SGPT 78 U/L (7-56); AST/SGOT 137 U/L (14-36); BILIRUBIN,TOTAL 0.7 mg/dL (0.2-1.3); BLOOD UREA NITROGEN 18 mg/dL (7-21); CALCIUM 9.1 mg/dL (8.4-10.5); CARBON DIOXIDE 24 mmol/L (21-33); CHLORIDE 107 mmol/L (98-107); GFR AFRICAN-AMERICAN > 60; GLUCOSE,RANDOM 109 mg/dL (70-110); MAGNESIUM 1.8 mg/dL (1.7-2.2); POTASSIUM 4.2 mmol/L (3.6-5.0); SODIUM 139 mmol/L (132-148); TOTAL PROTEIN 6.7 g/dL (5.8-8.3)
--- NOTE | 2017-01-04 09:08 | US ---
PROCEDURE: Right upper extremity venous US CLINICAL HISTORY: Arm pain and swelling Evaluate for deep venous thrombosis. PHYSICIAN(S): King Solomon M.D FINDINGS: The exam is limited by body habitus. The visualized rightinternal jugular vein is small but otherwise sonographically normal and compressible. No evidence of obstruction or thrombus is seen. The visualized segments of the right subclavian vein are patent with normal waveforms. No sonographic evidence of obstruction or thrombosis is seen. The visualized deep venous system of the proximal right upper extremity is sonographically normal and compressible. IMPRESSION: 1. No sonographic evidence for deep venous thrombosis in the visualized segments of the right upper extremity.
[2017-01-04] MEDS: Pantoprazole 40 mg EC Tab PO SCH (09:36)
[2017-01-04 09:46] LABS: TROPONIN I 0.09 ng/mL
--- NOTE | 2017-01-04 10:04 | CP.PCM.PN ---
Subjective - Date & Time of Evaluation Date of Evaluation: 01/04/17 Time of Evaluation: 10:01 - Subjective Subjective: Surgery Progress Note for Dr. Mariscal: Pt seen and examined at bedside. Pt denied any acute overnight events. Pt mercedes port removal well. Pt denied CP, SOB, n/v/d, chills, fever, pain at surgical site, abdominal pain, or dizziness. Objective - Vital Signs/Intake and Output Vital Signs (last 24 hours): Temp Pulse Resp BP Pulse Ox 98.6 F 89 20 142/71 95 01/04/17 07:54 01/04/17 09:37 01/04/17 07:54 01/04/17 09:37 01/04/17 07:54 Intake and Output: 01/04/17 01/04/17 06:59 18:59 Intake Total 1040 1800 Balance 1040 1800 - Medications Medications: Current Medications Acetaminophen (Tylenol 325mg Tab) 650 mg PO Q4H PRN PRN Reason: Temperature Last Admin: 01/03/17 02:25 Dose: 650 mg Aspirin (Ecotrin) 81 mg PO DAILY [facility] Last Admin: 01/04/17 09:37 Dose: 81 mg Hydromorphone HCl (Dilaudid) 1 mg IVP Q4H PRN PRN Reason: Pain, moderate (4-7) Last Admin: 01/04/17 03:15 Dose: 1 mg Sodium Chloride (Sodium Chloride 0.45%) 1,000 mls @ 75 mls/hr IV .[id number] [facility] Last Admin: 01/04/17 05:26 Dose: 75 mls/hr Nafcillin Sodium 2 gm/ (Dextrose) 100 mls @ 100 mls/hr IVPB Q4 [facility] PRN Reason: Protocol Insulin Human Lispro (Humalog Med) 0 units SC ACHS [facility] PRN Reason: Protocol Last Admin: 01/04/17 07:58 Dose: Not Given Isosorbide Mononitrate (Imdur Er) 30 mg PO DAILY [facility] Last Admin: 01/04/17 09:37 Dose: 30 mg Loratadine (Claritin) 10 mg PO DAILY [facility] Last Admin: 01/04/17 09:37 Dose: 10 mg Metoprolol Tartrate (Lopressor) 50 mg PO BID [facility] Last Admin: 01/04/17 09:37 Dose: 50 mg Oxycodone HCl (Oxycodone Immediate Release Tab) 10 mg PO Q6H PRN PRN Reason: Pain, moderate (4-7) Last Admin: 01/04/17 05:30 Dose: 10 mg Pantoprazole Sodium (Protonix Ec Tab) 40 mg PO DAILY [facility] Last Admin: 01/04/17 09:36 Dose: 40 mg - Labs Labs: 01/04/17 08:20 01/04/17 08:20 PT 12.8 SECONDS (9.4-12.5) H 01/01/17 14:30 INR 1.17 (0.93-1.08) H 01/01/17 14:30 APTT 34.7 Seconds (25.1-36.5) 01/01/17 14:30 - Constitutional Appears: No Acute Distress - Head Exam Head Exam: ATRAUMATIC, NORMAL INSPECTION, NORMOCEPHALIC - Eye Exam Eye Exam: EOMI, Normal appearance, PERRL - ENT Exam ENT Exam: Mucous Membranes Moist - Neck Exam Neck Exam: Full ROM. absent: Lymphadenopathy, Tenderness, Thyromegaly - Respiratory Exam Respiratory Exam: Clear to Ausculation Bilateral. absent: Accessory Muscle Use , Rales, Rhonchi, Wheezes, Respiratory Distress - Cardiovascular Exam Cardiovascular Exam: RRR, +S1, +S2. absent: Diastolic murmur, Gallop, Rubs, Murmur - GI/Abdominal Exam GI & Abdominal Exam: Soft, Normal Bowel Sounds. absent: Distended, Guarding, Tenderness, Rebound - Extremities Exam Extremities Exam: Full ROM - Back Exam Back Exam: NORMAL INSPECTION - Neurological Exam Neurological Exam: Alert, Awake, Oriented x3 - Psychiatric Exam Psychiatric exam: Normal Affect, Normal Mood - Skin Skin Exam: Dry, Intact, Normal Color, Warm Assessment and Plan - Assessment and Plan (Free Text) Assessment: 71 yo female s/p infected port-a-cath removal POD#1 - Afebrile, no leukocytosis - Abx per ID: Nafcillin - Dressing changes, packing removed - Medical management DW Dr. Davey De Anda, PGY1
--- NOTE | 2017-01-04 12:01 | CP.PCM.PN ---
Subjective - Date & Time of Evaluation Date of Evaluation: 01/04/17 Time of Evaluation: 10:40 - Subjective Subjective: Comfortable on a chair, less pain along the chest wall, no fevers overnight, not in distress, no nausea, no diarrhea. Objective - Vital Signs/Intake and Output Vital Signs (last 24 hours): Temp Pulse Resp BP Pulse Ox 98 F 85 20 141/80 98 01/03/17 16:25 01/04/17 06:00 01/03/17 16:25 01/03/17 17:36 01/03/17 16:25 Intake and Output: 01/04/17 01/04/17 06:59 18:59 Intake Total 1040 1800 Balance 1040 1800 - Medications Medications: Current Medications Acetaminophen (Tylenol 325mg Tab) 650 mg PO Q4H PRN PRN Reason: Temperature Last Admin: 01/03/17 02:25 Dose: 650 mg Aspirin (Ecotrin) 81 mg PO DAILY [facility] Last Admin: 01/03/17 12:45 Dose: 81 mg Hydromorphone HCl (Dilaudid) 1 mg IVP Q4H PRN PRN Reason: Pain, moderate (4-7) Last Admin: 01/04/17 03:15 Dose: 1 mg Vancomycin HCl (Vancomycin 1gm) 1 gm in 250 mls @ 167 mls/hr IVPB Q12H [facility] PRN Reason: Protocol Last Admin: 01/04/17 05:24 Dose: 167 mls/hr Sodium Chloride (Sodium Chloride 0.45%) 1,000 mls @ 75 mls/hr IV .[id number] [facility] Last Admin: 01/04/17 05:26 Dose: 75 mls/hr Piperacillin Sod/Tazobactam Sod (Zosyn 3.375 In Ns 100ml) 100 mls @ 200 mls/hr IVPB Q6 [facility] PRN Reason: Protocol Stop: 01/09/17 07:38 Last Admin: 01/04/17 05:25 Dose: 200 mls/hr Insulin Human Lispro (Humalog Med) 0 units SC ACHS [facility] PRN Reason: Protocol Last Admin: 01/03/17 22:11 Dose: Not Given Isosorbide Mononitrate (Imdur Er) 30 mg PO DAILY [facility] Last Admin: 01/03/17 12:45 Dose: 30 mg Loratadine (Claritin) 10 mg PO DAILY [facility] Metoprolol Tartrate (Lopressor) 50 mg PO BID [facility] Last Admin: 01/03/17 17:36 Dose: 50 mg Oxycodone HCl (Oxycodone Immediate Release Tab) 10 mg PO Q6H PRN PRN Reason: Pain, moderate (4-7) Last Admin: 01/04/17 05:30 Dose: 10 mg Pantoprazole Sodium (Protonix Ec Tab) 40 mg PO DAILY [facility] Last Admin: 01/03/17 12:45 Dose: 40 mg - Labs Labs: 01/03/17 06:30 01/02/17 06:20 PT 12.8 SECONDS (9.4-12.5) H 01/01/17 14:30 INR 1.17 (0.93-1.08) H 01/01/17 14:30 APTT 34.7 Seconds (25.1-36.5) 01/01/17 14:30 - Constitutional Appears: Non-toxic, Chronically Ill - Head Exam Head Exam: NORMAL INSPECTION - ENT Exam ENT Exam: Mucous Membranes Moist - Neck Exam Neck Exam: absent: Lymphadenopathy, Meningismus - Respiratory Exam Respiratory Exam: Decreased Breath Sounds Additional comments: right anterior chest wall port site with dressings in place, still with erythema , but less swelling - Cardiovascular Exam Cardiovascular Exam: +S1, +S2 - GI/Abdominal Exam GI & Abdominal Exam: Soft. absent: Tenderness Assessment and Plan - Assessment and Plan (Free Text) Plan: Assessment Sepsis due to right anterior chest wall port-a-cath associated skin and skin structure infection and port infection with Methicillin-sensitive Staph aureus bacteremia S/P port removal POD #1 recent diagnosis is uterine cancer S/P port-a-cath placement and 2 cycles of chemotherapy already COPD obesity with BMI 38 HTN DM history of cervical cancer history of degenerative disc disease Plan switched antibiotics to Nafcillin - follow up repeat blood cx taken from yesterday 2D echo had poor windows - ideally should get ERIC; doppler U/S does not show DVT patient will also need 4-6 weeks of antibiotics because of the Staph aureus infection will continue monitor clinically overall prognosis is poor discussed with Dr. Butcher previously
--- NOTE | 2017-01-04 17:17 | PN ---
DATE: SUBJECTIVE: The patient is 71 years old, seen and examined, sitting in chair. Seems to be much comfortable, awake, alert, oriented and communicative. She admits that she was not feeling well up until yesterday when Port-A-Cath was removed. She was very confused and disoriented. PHYSICAL EXAMINATION: GENERAL: Today, on examination, she is awake, alert, oriented and communicative. VITAL SIGNS: She is afebrile, pulse 90, respirations 20 and blood pressure 142/71. LUNGS: Bilateral fair airflow. No rhonchi or crackle. HEART: S1 and S2 audible. CHEST: Her right chest Port-A-Cath is removed. Wound seems to be okay. ABDOMEN: Soft and nontender. No rebound. No guarding. LABORATORY EXAM: WBC is 5.5, hemoglobin 11, hematocrit 32.8 and platelets 124. Chemistry; sodium 139, potassium 4.2, chloride 107, CO2 24, BUN 18, creatinine 1.0, blood sugar of 156, CPK 2828, AST 137 and ALT 78. Her both blood cultures are positive for Streptococcus aureus. She has borderline concentric LVH. Left ventricular function is normal. Left ventricular ejection fraction is within the normal range and normal LV segment wall motion. ASSESSMENT: 1. Line sepsis. 2. Streptococcus aureus bacteremia. 3. Recent diagnosis of uterine cancer. 4. History of chronic back pain. PLAN: Currently, the patient is eating well. We will discontinue her IV fluids. She is hemodynamically stable. We will discontinue her tele. Analgesic as needed. She has been started on nafcillin. We will request Dr. King Solomon for PICC line. We will discuss with the patient might need ERIC to rule out endocarditis. Sumit Butcher MD TIFF[facility]IE
--- NOTE | 2017-01-04 22:39 | PN ---
DATE: 01/04/2017 LOCATION: The patient is in room 364, bed 2. REASON FOR CONSULTATION AND FOLLOWUP: History of fall, hypertension, uterine cancer, elevated troponin, and possibly infected Port-A-Cath. SUBJECTIVE: The patient is sitting in chair comfortably without any chest pain, shortness of breath, or palpitation. PHYSICAL EXAMINATION: VITAL SIGNS: Blood pressure 147/80, respirations 20, pulse 85 and temperature 98.8. HEENT: Head is normocephalic. Eyes, pupils normal. Conjunctivae slightly pale. NECK: JVP is low. LUNGS: Clear. CARDIOVASCULAR: S1 and S2. ABDOMEN: Soft. Bowel sounds are normal. EXTREMITIES: No clubbing. No cyanosis. LABORATORY DATA: WBC 5.5, hemoglobin 11.0, hematocrit 32.8, and platelet 124. Sodium 139, potassium 4.2, BUN 18, creatinine 1.0, random sugar 222, random glucose 109. CPK 2820. Troponin 0.09. Earlier troponin was 0.41 and total CPK was 4046 and another repeat troponin was 0.32 with CPK of 4046. DIAGNOSES: Status post fall, status post rhabdomyolysis, positive troponin, mostly likely secondary to rhabdomyolysis, but cannot ruled out underlying coronary artery disease, history of endometrial cancer with metastasis, status post chemotherapy, possible infected Port-A-Cath, status post removal of Port-A-Cath. PLAN: Continue antibiotics, no evidence of endocarditis. From cardiac point of view, we are treating the patient medically and no intervention is planned. The patient has been put on isosorbide mono 30 daily, metoprolol 50 b.i.d., aspirin 81 mg p.o. daily. I discussed with the patient about stress test, the patient believes her heart is okay and she does not want to do stress test at the present moment, so we will continue present therapy. We will follow with you. Astrid Macedo MD
[2017-01-05 06:28] LABS: HEMATOCRIT 32.9 % (36.0-48.0); MEAN CELL VOLUME 84.6 fl (80.0-105.0); MEAN CORPUSCULAR HEMOGLOBIN 28.5 pg (25.0-35.0); MEAN CORPUSCULAR HGB CONC 33.7 g/dl (31.0-37.0); MEAN PLATELET VOLUME 9.9 fl (7.0-11.0); RED CELL DISTRIBUTION WIDTH 13.8 % (11.5-14.5); WHITE BLOOD COUNT 6.5 10^3/ul (4.5-11.0)
[2017-01-05 06:40] LABS: ALKALINE PHOSPHATASE 80 U/L (38-126); ALT/SGPT 82 U/L (7-56); AST/SGOT 145 U/L (14-36); BILIRUBIN,TOTAL 1.2 mg/dL (0.2-1.3); BLOOD UREA NITROGEN 17 mg/dL (7-21); CALCIUM 9.4 mg/dL (8.4-10.5); CARBON DIOXIDE 28 mmol/L (21-33); CHLORIDE 106 mmol/L (98-107); GFR AFRICAN-AMERICAN > 60; GLUCOSE,RANDOM 121 mg/dL (70-110); POTASSIUM 4.1 mmol/L (3.6-5.0); SODIUM 141 mmol/L (132-148); TOTAL PROTEIN 7.3 g/dL (5.8-8.3)
--- NOTE | 2017-01-05 08:24 | CP.PCM.PN ---
Subjective - Date & Time of Evaluation Date of Evaluation: 01/05/17 Time of Evaluation: 08:20 - Subjective Subjective: General Surgery Progress Note for Dr. Davey Maddox seen and examined at bedside. Sitting up in bed looking comfortable. Complaining of mild tenderness over previous port site as well as superior to port site. Complains of swelling on R side surround the incision site. No other complaints at this time. Denies fever, chills, nausea, vomiting, chest pain, SOB. Objective - Vital Signs/Intake and Output Vital Signs (last 24 hours): Temp Pulse Resp BP Pulse Ox 98.8 F 85 20 147/80 97 01/04/17 16:00 01/04/17 17:09 01/04/17 16:00 01/04/17 17:09 01/04/17 16:00 Intake and Output: 01/05/17 01/05/17 06:59 18:59 Intake Total 1080 Balance 1080 - Medications Medications: Current Medications Acetaminophen (Tylenol 325mg Tab) 650 mg PO Q4H PRN PRN Reason: Temperature Last Admin: 01/03/17 02:25 Dose: 650 mg Aspirin (Ecotrin) 81 mg PO DAILY [facility] Last Admin: 01/04/17 09:37 Dose: 81 mg Hydromorphone HCl (Dilaudid) 1 mg IVP Q4H PRN PRN Reason: Pain, moderate (4-7) Last Admin: 01/04/17 03:15 Dose: 1 mg Nafcillin Sodium 2 gm/ (Dextrose) 100 mls @ 100 mls/hr IVPB Q4 [facility] PRN Reason: Protocol Last Admin: 01/05/17 04:34 Dose: 100 mls/hr Insulin Human Lispro (Humalog Med) 0 units SC ACHS [facility] PRN Reason: Protocol Last Admin: 01/04/17 21:59 Dose: Not Given Isosorbide Mononitrate (Imdur Er) 30 mg PO DAILY [facility] Last Admin: 01/04/17 09:37 Dose: 30 mg Loratadine (Claritin) 10 mg PO DAILY [facility] Last Admin: 01/04/17 09:37 Dose: 10 mg Metoprolol Tartrate (Lopressor) 50 mg PO BID [facility] Last Admin: 01/04/17 17:09 Dose: 50 mg Oxycodone HCl (Oxycodone Immediate Release Tab) 10 mg PO Q6H PRN PRN Reason: Pain, moderate (4-7) Last Admin: 01/04/17 22:53 Dose: 10 mg Pantoprazole Sodium (Protonix Ec Tab) 40 mg PO DAILY [facility] Last Admin: 01/04/17 09:36 Dose: 40 mg - Labs Labs: 01/05/17 06:00 01/05/17 06:00 PT 12.8 SECONDS (9.4-12.5) H 01/01/17 14:30 INR 1.17 (0.93-1.08) H 01/01/17 14:30 APTT 34.7 Seconds (25.1-36.5) 01/01/17 14:30 - Constitutional Appears: Non-toxic - Head Exam Head Exam: ATRAUMATIC, NORMAL INSPECTION, NORMOCEPHALIC - Eye Exam Eye Exam: EOMI - ENT Exam ENT Exam: Mucous Membranes Moist - Neck Exam Additional comments: site where port was removed on right chest wall is mildly tender to palpation. It is also tender to palpation superior to the site. Swelling is evident. Some erythema surrounding site. Dressing is clean dry and intact. No packing. - Respiratory Exam Respiratory Exam: Clear to Ausculation Bilateral, NORMAL BREATHING PATTERN - Cardiovascular Exam Cardiovascular Exam: REGULAR RHYTHM - GI/Abdominal Exam GI & Abdominal Exam: Soft, Normal Bowel Sounds. absent: Distended, Tenderness - Extremities Exam Extremities Exam: absent: Joint Swelling, Tenderness - Neurological Exam Neurological Exam: Alert, Awake, Oriented x3 - Psychiatric Exam Psychiatric exam: Normal Affect, Normal Mood - Skin Skin Exam: Dry, Intact, Normal Color, Warm Assessment and Plan - Assessment and Plan (Free Text) Assessment: 71F POD2 Infected Port Removal Plan: * Packing removed yesterday * Continue antibiotics * Further management per medical team * Further reccs per Dr. Davey Dorsey PGY1
[2017-01-05] MEDS: Insulin Lispro (humaLOG) MEDIUM Coverage SC SCH ×5 (08:27→22:19)
[2017-01-05] MEDS: Pantoprazole 40 mg EC Tab PO SCH (09:11)
[2017-01-05] MEDS: CETIRIZINE 10 MG PO SCH (10:41)
--- NOTE | 2017-01-05 12:00 | PN ---
DATE: 01/05/2017 LOCATION: The patient seen earlier today in room 364, bed 2. SUBJECTIVE: The patient states that she is doing well. No fevers. No chills. No chest pain. PHYSICAL EXAMINATION: VITAL SIGNS: On exam, temperature is 98, blood pressure is 160/60, respiratory rate of 20, and heart rate of 85. HEENT: Unremarkable. NECK: Supple. LUNGS: Decreased breath sounds. HEART: Normal S1, S2. ABDOMEN: Soft, nontender. LABORATORY DATA: Reveals a white count of 6.5, hemoglobin of 11. Sed rate is 85. Chemistries are noted and the patient has a BUN of 17, creatinine of 1.0, AST is 145. Urinalysis is noted. Serology is noted. Blood cultures are positive for gram-positive cocci, identified as Staph aureus initially and it is pansensitive Staph aureus, oxacillin sensitive with a BLOSSOM of 0.25 and a vancomycin BLOSSOM of 0.5. Repeat blood cultures in two were no growth. The patient had a light growth of the gram-positive cocci from the Port-A-Cath which was removed yesterday. MEDICATIONS: Review of orders reveals the patient to be on nafcillin 2 g q.4h., which is active under orders. ASSESSMENT AND PLAN: This is a 71-year-old female with sepsis, with right anterior chest wall catheter, sensitive Staph aureus bacteremia, status post removal of a Port-A-Cath on postop day #2, recent diagnosis of uterine cancer status post Port-A-Cath placement, two cycles of chemotherapy. The patient with chronic obstructive lung disease, obesity with a body mass index. Today is day #3 of nafcillin. Will need 21 days of antibiotics with of 18, sed rate, C-reactive protein. The patient has had an echocardiogram and we asked Dr. Carpenter to review the echo. Dr. Carpenter states that he does not feel transesophageal echo was necessary since the repeat cultures are negative. Alexandre Arana MD
--- NOTE | 2017-01-05 14:23 | PN ---
DATE: 01/05/2017 REASON FOR CONSULTATION AND FOLLOWUP: Gram-positive rule out endocarditis, possibly infected Port-A-Cath. SUBJECTIVE: The patient is sitting. Denies any chest pain, shortness of breath or any palpitation. OBJECTIVE: GENERAL: Not in apparent distress. VITAL SIGNS: As follows, temperature afebrile, heart rate 51, blood pressure 160/62. HEENT: PERRLA. Extraocular muscles are intact. NECK: Supple. No carotid bruit or thyromegaly. CHEST: Clear to auscultation. HEART: S1 and S2 regular. ABDOMEN: Soft. EXTREMITIES: Clubbing and cyanosis negative. LABORATORY DATA: Blood workup as follows. WBC 6.5, hemoglobin 11.2, hematocrit 32.9, and platelet count 145. Chemistry shows sodium 141, potassium 4.1, chloride 106, carbon dioxide 28, anion gap of 12, BUN 17, and creatinine 1.0. IMPRESSION: A 71-year-old obese female body mass 33.6 kg/m2, history of fall, status post rhabdomyolysis, positive troponin, most likely secondary to rhabdomyolysis, history of endometrial cancer with metastasis, status post chemo, possible infected Port-A-Cath, redness, ecchymosis and tenderness at Port-A-Cath noted. On admission, the patient had elevated WBC and gram-positive Staphylococcus aureus positive. Repeat blood culture was negative. Echo was done, , no obvious vegetation noted. ID recommendation noted. RECOMMENDATIONS: At this point, we will not consider ERIC since the Port-A-Cath has been removed. If the repeat blood culture remain positive, will then consider ERIC, otherwise we will treat medically. Discussed with the patient. Discussed with nurse practitioner taking care of the patient, I also discussed with Dr. Arana. Yesterday, remaining Port-A-Cath was removed, so I will repeat the blood culture today. Although WBC came down nicely, on admitting the WBC was at 13,000 now is 6.5, if as mentioned blood culture persistently remain positive, then consider ERIC, otherwise treat medically. No need of ERIC at this time. We will order two sets of blood culture now, 24 hours post Port-A-Cath removal. Astrid Carpenter MD
[2017-01-05] MEDS ORDERED: ceFAZolin 2 GM in Sodium Chloride 0.9% 100 ML IVPB STA (15:32)
[2017-01-05] MEDS: HYDROmorphone 1 mg/ml ISec IVP PRN (16:31)
[2017-01-05 17:18] VITALS: O2SAT 97
[2017-01-05] MEDS: oxyCODONE 10 mg Immediate Release Tab PO PRN (18:32)
--- NOTE | 2017-01-05 20:56 | PN ---
DATE: SUBJECTIVE: The patient is a 71-year-old, seen and examined, doing well, sitting in chair. No fever. No chills. No nausea or vomiting. No diarrhea. PHYSICAL EXAMINATION VITAL SIGNS: She is afebrile, pulse 83, respirations 20, and blood pressure 169/109. LUNGS: Bilateral fair airflow. No rhonchi or crackles. HEART: S1 and S2 audible. ABDOMEN: Soft and nontender. No rebound. No guarding. NEUROLOGIC: The patient is awake, alert, oriented, and communicative. LABORATORY DATA: WBC 6.5, hemoglobin 11, hematocrit 32, and platelets 145. Chemistry: Sodium 141, potassium 4.1, chloride 106, CO2 28, BUN 17, creatinine 1.0, and blood sugar of 178. AST 145 and ALT 82. ASSESSMENT: 1. Status post staphylococcus aureus bacteremia. 2. Repeat blood cultures are negative. Echocardiogram is unremarkable. 3. Recently diagnosed uterine cancer status post 2 chemotherapy. 4. Hypertension. 5. Chronic degenerative disk disease. PLAN: The patient is currently on cefazolin 2 g q. 8 hours. She is on aspirin 81 daily. We will monitor her blood sugars. She is on isosorbide and metoprolol, we will continue that. Analgesics as needed and the patient need to have PICC line placed that is scheduled for tomorrow morning. Once that is in, the patient will be discharged home tomorrow to finish 4-6 weeks of antibiotics. Sumit Butcher MD
[2017-01-06 00:35] VITALS: RESP 18; TEMP 98.8
[2017-01-06] MEDS ORDERED: Apap-Butalbital-Caffeine 325-50-40mg Tab PO STA (00:50)
--- NOTE | 2017-01-06 00:50 | CP.PCM.PN ---
Subjective - Date & Time of Evaluation Date of Evaluation: 01/06/17 Time of Evaluation: 00:50 - Subjective Subjective: Seen at bedside. Complains of headache, severe, diffuse. Denies nausea, dizziness, paraesthesia. Gets headache at home for which she is getting firoricet. Also has lower back chuck on left side. States that before she came here , she fell down and has low back from that , had no xrays/CT scan done for that. 71 year old woman was admitted with lethargy, vomiting,sepsis, rhabdomyolysis. PMH of NIDDM, uterine cancer, COPD,DJD, borderline HTN. Objective - Vital Signs/Intake and Output Vital Signs (last 24 hours): Temp Pulse Resp BP Pulse Ox 98.8 F 75 18 163/79 H 97 01/05/17 22:00 01/05/17 22:00 01/05/17 22:00 01/05/17 22:00 01/05/17 16:00 Intake and Output: 01/05/17 01/06/17 18:59 06:59 Intake Total 600 Balance 600 - Medications Medications: Current Medications Acetaminophen (Tylenol 325mg Tab) 650 mg PO Q4H PRN PRN Reason: Temperature Last Admin: 01/03/17 02:25 Dose: 650 mg Aspirin (Ecotrin) 81 mg PO DAILY [facility] Last Admin: 01/05/17 09:17 Dose: 81 mg Home Med (Home Med) 1 unit PO DAILY [facility] Last Admin: 01/05/17 10:41 Dose: 1 unit Hydromorphone HCl (Dilaudid) 1 mg IVP Q4H PRN PRN Reason: Pain, moderate (4-7) Last Admin: 01/05/17 16:31 Dose: 1 mg Insulin Human Lispro (Humalog Med) 0 units SC ACHS [facility] PRN Reason: Protocol Last Admin: 01/05/17 22:19 Dose: Not Given Isosorbide Mononitrate (Imdur Er) 30 mg PO DAILY [facility] Last Admin: 01/05/17 09:10 Dose: 30 mg Lisinopril (Zestril) 10 mg PO DAILY [facility] Metoprolol Tartrate (Lopressor) 50 mg PO BID [facility] Last Admin: 01/05/17 18:24 Dose: 50 mg Oxycodone HCl (Oxycodone Immediate Release Tab) 10 mg PO Q6H PRN PRN Reason: Pain, moderate (4-7) Last Admin: 01/05/17 18:32 Dose: 10 mg Pantoprazole Sodium (Protonix Ec Tab) 40 mg PO DAILY [facility] Last Admin: 01/05/17 09:11 Dose: 40 mg - Labs Labs: 01/05/17 06:00 01/05/17 06:00 PT 12.8 SECONDS (9.4-12.5) H 01/01/17 14:30 INR 1.17 (0.93-1.08) H 01/01/17 14:30 APTT 34.7 Seconds (25.1-36.5) 01/01/17 14:30 Microbiology Studies 01/03/17 17:15 Blood Culture - Preliminary Blood-Venous NO GROWTH AFTER 48 HOURS 01/03/17 17:15 Blood Culture - Preliminary Blood-Venous NO GROWTH AFTER 48 HOURS 01/04/17 10:00 Gram Stain - Final Other: Please Indicate Wound Culture - Preliminary Gram Positive Cocci Lab Studies 01/05/17 01/05/17 01/05/17 Range/Units 21:28 16:25 07:51 WBC (4.5-11.0) 10^3/ul RBC (3.5-6.1) 10^6/uL Hgb (12.0-16.0) g/dL Hct (36.0-48.0) % MCV (80.0-105.0) fl MCH (25.0-35.0) pg MCHC (31.0-37.0) g/dl RDW (11.5-14.5) % Plt Count (120.0-450.0) 10^3/uL MPV (7.0-11.0) fl Sodium (132-148) mmol/L Potassium (3.6-5.0) mmol/L Chloride (98-107) mmol/L Carbon Dioxide (21-33) mmol/L Anion Gap (10-20) BUN (7-21) mg/dL Creatinine (0.7-1.2) mg/dl Est GFR ( Amer) Est GFR (Non-Af Amer) POC Glucose (mg/dL) 185 H 178 H 120 H (65-110) mg/dL Random Glucose (70-110) mg/dL Calcium (8.4-10.5) mg/dL Total Bilirubin (0.2-1.3) mg/dL AST (14-36) U/L ALT (7-56) U/L Alkaline Phosphatase (38-126) U/L Total Protein (5.8-8.3) g/dL Albumin (3.0-4.8) g/dL Globulin gm/dL Albumin/Globulin Ratio (1.1-1.8) 01/05/17 01/05/17 Range/Units 06:00 06:00 WBC 6.5 (4.5-11.0) 10^3/ul RBC 3.89 (3.5-6.1) 10^6/uL Hgb 11.1 L (12.0-16.0) g/dL Hct 32.9 L (36.0-48.0) % MCV 84.6 (80.0-105.0) fl MCH 28.5 (25.0-35.0) pg MCHC 33.7 (31.0-37.0) g/dl RDW 13.8 (11.5-14.5) % Plt Count 145 (120.0-450.0) 10^3/uL MPV 9.9 (7.0-11.0) fl Sodium 141 (132-148) mmol/L Potassium 4.1 (3.6-5.0) mmol/L Chloride 106 (98-107) mmol/L Carbon Dioxide 28 (21-33) mmol/L Anion Gap 12 (10-20) BUN 17 (7-21) mg/dL Creatinine 1.0 (0.7-1.2) mg/dl Est GFR ( Amer) > 60 Est GFR (Non-Af Amer) 55 POC Glucose (mg/dL) (65-110) mg/dL Random Glucose 121 H (70-110) mg/dL Calcium 9.4 (8.4-10.5) mg/dL Total Bilirubin 1.2 (0.2-1.3) mg/dL AST 145 H (14-36) U/L ALT 82 H (7-56) U/L Alkaline Phosphatase 80 (38-126) U/L Total Protein 7.3 (5.8-8.3) g/dL Albumin 3.6 (3.0-4.8) g/dL Globulin 3.8 gm/dL Albumin/Globulin Ratio 1.0 L (1.1-1.8) - Constitutional Appears: Well, No Acute Distress - Head Exam Head Exam: ATRAUMATIC, NORMAL INSPECTION, NORMOCEPHALIC Additional comments: Obese person. - Eye Exam Eye Exam: Normal appearance - ENT Exam ENT Exam: Normal External Ear Exam - Neck Exam Neck Exam: Normal Inspection - Respiratory Exam Respiratory Exam: NORMAL BREATHING PATTERN - Cardiovascular Exam Cardiovascular Exam: absent: JVD - GI/Abdominal Exam GI & Abdominal Exam: absent: Distended - Rectal Exam Rectal Exam: Deferred - Exam Additional comments: Deferred. - Extremities Exam Extremities Exam: Normal Inspection - Back Exam Back Exam: NORMAL INSPECTION - Neurological Exam Neurological Exam: Alert, Oriented x3 - Psychiatric Exam Psychiatric exam: Normal Affect, Normal Mood - Skin Skin Exam: Normal Color Assessment and Plan - Assessment and Plan (Free Text) Assessment: Headache. Low back pain. NIDDM. Uterine cancer. COPD. DJD. Borderline HTN. Plan: Fioricet 2 tabs po now. Nurse will endorse AM nurse to let know about low back pain and ask her if she wants xray/CT ordered. Continue present management.
--- NOTE | 2017-01-06 07:03 | CP.PCM.PCO ---
Physician Communication Note - Physician Communication Note Physician Communication Note: PICC today/ OK home IV AB
[2017-01-06] MEDS: Insulin Lispro (humaLOG) MEDIUM Coverage SC SCH ×2 (07:58→12:02)
[2017-01-06] MEDS: CETIRIZINE 10 MG PO SCH (10:46)
[2017-01-06] MEDS: Pantoprazole 40 mg EC Tab PO SCH (10:46)
[2017-01-06 10:53] VITALS: BP 154/68; PULSE 82
--- NOTE | 2017-01-06 12:09 | CP.PCM.PN ---
Subjective - Date & Time of Evaluation Date of Evaluation: 01/06/17 Time of Evaluation: 12:06 - Subjective Subjective: PGY1 Not for Dr. Mariscal Patient seen and examined at bedside. Doing well with no complaints at this time. Pain has almost completely resolved. No fever, chills, nausea, vomiting, diarrhea, constipation, chest, SOB Objective - Vital Signs/Intake and Output Vital Signs (last 24 hours): Temp Pulse Resp BP Pulse Ox 98.8 F 82 18 154/68 H 97 01/05/17 22:00 01/06/17 10:48 01/05/17 22:00 01/06/17 10:48 01/05/17 16:00 Intake and Output: 01/06/17 01/06/17 06:59 18:59 Intake Total 720 Balance 720 - Medications Medications: Current Medications Acetaminophen (Tylenol 325mg Tab) 650 mg PO Q4H PRN PRN Reason: Temperature Last Admin: 01/03/17 02:25 Dose: 650 mg Aspirin (Ecotrin) 81 mg PO DAILY [facility] Last Admin: 01/06/17 10:45 Dose: 81 mg Home Med (Home Med) 1 unit PO DAILY [facility] Last Admin: 01/06/17 10:46 Dose: 1 unit Hydromorphone HCl (Dilaudid) 1 mg IVP Q4H PRN PRN Reason: Pain, moderate (4-7) Last Admin: 01/05/17 16:31 Dose: 1 mg Cefazolin Sodium 2 gm/ Sodium (Chloride) 100 mls @ 200 mls/hr IVPB Q8 [facility] PRN Reason: Protocol Stop: 01/14/17 14:01 Insulin Human Lispro (Humalog Med) 0 units SC ACHS [facility] PRN Reason: Protocol Last Admin: 01/06/17 12:02 Dose: Not Given Isosorbide Mononitrate (Imdur Er) 30 mg PO DAILY [facility] Last Admin: 01/06/17 10:46 Dose: 30 mg Lisinopril (Zestril) 10 mg PO DAILY [facility] Last Admin: 01/06/17 10:46 Dose: 10 mg Metoprolol Tartrate (Lopressor) 50 mg PO BID [facility] Last Admin: 01/06/17 10:48 Dose: 50 mg Oxycodone HCl (Oxycodone Immediate Release Tab) 10 mg PO Q6H PRN PRN Reason: Pain, moderate (4-7) Last Admin: 01/05/17 18:32 Dose: 10 mg Pantoprazole Sodium (Protonix Ec Tab) 40 mg PO DAILY [facility] Last Admin: 01/06/17 10:46 Dose: 40 mg - Labs Labs: 01/05/17 06:00 01/05/17 06:00 PT 12.8 SECONDS (9.4-12.5) H 01/01/17 14:30 INR 1.17 (0.93-1.08) H 01/01/17 14:30 APTT 34.7 Seconds (25.1-36.5) 01/01/17 14:30 - Constitutional Appears: Well, Non-toxic, No Acute Distress - Head Exam Head Exam: ATRAUMATIC, NORMAL INSPECTION, NORMOCEPHALIC - Eye Exam Eye Exam: EOMI Pupil Exam: NORMAL ACCOMODATION - ENT Exam ENT Exam: Mucous Membranes Moist - Neck Exam Neck Exam: Full ROM - Respiratory Exam Respiratory Exam: Clear to Ausculation Bilateral, NORMAL BREATHING PATTERN - Cardiovascular Exam Cardiovascular Exam: REGULAR RHYTHM Additional comments: previous port site less red and less tender - GI/Abdominal Exam GI & Abdominal Exam: Soft, Normal Bowel Sounds. absent: Distended, Tenderness - Neurological Exam Neurological Exam: Alert, Awake, Oriented x3 - Psychiatric Exam Psychiatric exam: Normal Affect, Normal Mood - Skin Skin Exam: Dry, Intact, Normal Color, Warm Assessment and Plan - Assessment and Plan (Free Text) Assessment: * PICC line today * no further surgical intervention needed * Home on IV antibiotics * Follow up in the office with Dr. Mariscal. Please call to make an appointment.
[2017-01-06] MEDS ORDERED: Lidocaine 2% Inj (20ml) ONE (12:10)
[2017-01-06] MEDS ORDERED: Iodixanol 320 MG/ML 100 ML BOTTLE IV ONE (13:07)
[2017-01-06] MEDS ORDERED: ceFAZolin 2 GM in Sodium Chloride 0.9% 100 ML IVPB SCH (14:00)
--- NOTE | 2017-01-06 15:53 | RAD ---
PROCEDURE: Left Hip X-ray Radiographs. HISTORY: fall/pain COMPARISON: None. FINDINGS: BONES: Normal. No fracture. JOINTS: Degenerative changes both hips. Incompletely visualized sacroiliac degenerative change. SOFT TISSUES: Normal. OTHER FINDINGS: None. IMPRESSION: No acute findings related to/accounting for the clinical presentation.
--- NOTE | 2017-01-06 15:54 | RAD ---
PROCEDURE: Radiographs of the Lumbar Spine. HISTORY: fall/pain COMPARISON: No prior. FINDINGS: BONES: No acute fractures. Grade 1 anterolisthesis L5-S1. DISC SPACES: Multilevel degenerative changes primarily disc space narrowing, endplate sclerosis common non marginal osteophyte formation. OTHER FINDINGS: None. IMPRESSION: No acute findings related to/accounting for the clinical presentation.
--- NOTE | 2017-01-06 17:13 | VASCULAR ---
PROCEDURE: Ultrasound and fluoroscopically placed right upper extremity PICC line. HISTORY: Metastatic uterine carcinoma. Infected port with sepsis. Needs PICC line for long-term IV antibiotics. PHYSICIAN(S): King Solomon MD. TECHNIQUE: The relative risks and indications of the procedure were explained to the patient and consent obtained. The patient was placed supine on the arteriogram table and the right arm prepped and draped in the usual sterile fashion. A tourniquet was applied to the right axilla. 1% Xylocaine was used to anesthetize the skin and soft tissues at the puncture site above the elbow. The right brachial vein was punctured under direct ultrasound guidance with a micropuncture set. A 0.018 guidewire was advanced centrally and used to measure the length to the SVC/RA junction. A 5 [place] single-lumen PICC line 40 cm long was advanced to the SVC/RA junction. The catheter was flushed and secured. The patient tolerated the procedure well. IMPRESSION: 1. Ultrasound and fluoroscopically placed right upper extremity PICC line. A 5 [place] single-lumen PICC line 40 cm long was advanced to the SVC/RA junction.
--- NOTE | 2017-01-07 00:57 | PN ---
DATE: LOCATION: The patient is in room number 364, bed 2. REASON FOR CONSULTATION AND FOLLOWUP: Sepsis, rule out endocarditis, possible infected Port-A-Cath, slightly elevated troponin with rhabdomyolysis. SUBJECTIVE: The patient denies any chest pain, shortness of breath, or palpitations. PHYSICAL EXAMINATION: VITAL SIGNS: Blood pressure of 154/68, respirations of 20, pulse of 83, and temperature of 98.6. HEENT: Head is normocephalic. Pupils are normal. Conjunctivae are slightly pale. NECK: JVP low. Carotids equal. THORAX: AP diameter normal. LUNGS: No rales. CARDIOVASCULAR: S1 and S2. ABDOMEN: Soft and nontender. No organomegaly. Bowel sounds normal. EXTREMITIES: No clubbing and no cyanosis. LABORATORY DATA: WBC of 6.5, hemoglobin of 11.1, hematocrit of 32.9, and platelets of 145. Sugar of 127, sodium of 141, potassium of 4.1, BUN of 17, and creatinine of 1.0. AST of 145 and ALT of 82. Total protein of 7.3 and albumin of 3.6. Troponins were 0.35, 0.41, and 0.32, but CPK total also elevated at 4046. DIAGNOSTIC DATA: Echo on 01/02/2017 showed normal size LV, borderline concentric left ventricular hypertrophy, LV systolic function normal, LV ejection fraction normal, grade I and normal relaxation pattern, and ejection fraction of 68%. DIAGNOSES: Sepsis, infected Port-A-Cath, slight troponin elevation, most likely secondary to rhabdomyolysis; history of endometrial cancer with metastasis, status post Port-A-Cath removal; sepsis, Staphylococcus aureus, positive and repeat blood culture is negative. PLAN: The patient does not want to do stress test and also troponin is elevated due to rhabdomyolysis. So, we will continue present therapy and we will follow with you. Astrid Macedo MD
--- NOTE | 2017-01-08 09:19 | DS ---
HISTORY OF PRESENT ILLNESS: The patient is a 71-year-old, seen and examined, lying in bed, seems to be comfortable. No nausea or vomiting. No diarrhea. Eating and tolerating. Getting ready to have a PICC line placed. PHYSICAL EXAMINATION: VITAL SIGNS: She is afebrile, pulse is 82, respirations are 18, and blood pressure is 154/68. LUNGS: Bilateral fair airflow. No rhonchi or crackles. HEART: S1 and S2, audible. ABDOMEN: Soft and nontender. No rebound. No guarding. NEUROLOGIC: She is awake, alert, oriented, and communicative. LABORATORY DATA: WBC 6.5, hemoglobin 11, hematocrit 32, and platelets 145. Chemistry: Sodium 141, potassium 4.1, and chloride 106. ASSESSMENT: 1. Recently diagnosed uterine cancer. 2. Line sepsis. 3. Streptococcus aureus bacteremia. 4. Chronic back pain. 5. Hypertension. PLAN: The patient is going to be discharged today on 2 g q.8 hours for 4 weeks. The patient needs to have a PICC line. She states she will manage her medication by herself. Since, the patient complained of left lower back and left hip pain, since she fell, I will order for x-ray of the pelvis, lumbosacral spine, and left hip. If it is negative, she will be discharged today. Sumit Butcher MD
== END 2017-01-06 16:16 | disposition home or self-care (01) | DRG 314 ==
LOC: ED 13:42 → ERH 15:42 → 2RSO 17:42 → 3RNO 01-03 11:40
PROVIDERS: ADMIT Internal Medicine; ATTEND Internal Medicine
PROC: 0JPV3WZ Removal of Totally Implantable Vascular Access Device from Upper Extremity Subcutaneous Tissue and Fascia, Percutaneous Approach (ICD-10-PCS; 2017-01-03)
PROC: 02HV33Z Insertion of Infusion Device into Superior Vena Cava, Percutaneous Approach (ICD-10-PCS; principal; 2017-01-06)
PROC: B54MZZA Ultrasonography of Right Upper Extremity Veins, Guidance (ICD-10-PCS; 2017-01-06)
DX: T80.218A Other infection due to central venous catheter, initial encounter (principal); A41.01 Sepsis due to Methicillin susceptible Staphylococcus aureus; M62.82 Rhabdomyolysis; C55 Malignant neoplasm of uterus, part unspecified; Y83.8 Other surgical procedures as the cause of abnormal reaction of the patient, or of later complication, without mention of misadventure at the time of the procedure; E11.9 Type 2 diabetes mellitus without complications; J44.9 Chronic obstructive pulmonary disease, unspecified; M51.9 Unspecified thoracic, thoracolumbar and lumbosacral intervertebral disc disorder; I10 Essential (primary) hypertension; F51.02 Adjustment insomnia; E78.5 Hyperlipidemia, unspecified; R00.8 Other abnormalities of heart beat; E66.9 Obesity, unspecified; Z68.38 Body mass index [BMI] 38.0-38.9, adult; Z91.81 History of falling; Z87.891 Personal history of nicotine dependence; Z85.41 Personal history of malignant neoplasm of cervix uteri; Z79.84 Long term (current) use of oral hypoglycemic drugs